=== PATIENT | female | born 1965 | race Hispanic/Latino ===

== ENCOUNTER 2018-12-26 01:08 | Emergency (ER) | payer OTHER ==
--- NOTE | 2018-12-26 01:58 | EDPHYS ---
Physician Documentation [facility] Name: Bailey Sears Age: 53 yrs Sex: Female : 1965 Arrival Date: 12/26/2018 Time: : Bed 6 Private MD: ED Physician Tj Garcia HPI: 12/26 01:49 This 53 yrs old Female presents to ER via EMS with complaints of Allergic doris Reaction. 01:49 The patient presents with chest pain, difficulty swallowing, shortness of breath, doris vomiting. Onset: The symptoms/episode began/occurred just prior to arrival. Associated signs and symptoms: Pertinent positives: abdominal pain, chest pain, light headed, nausea, shortness of breath. Possible causes: hair dye. At home the patient or guardian has treated the symptoms with nothing. Severity of symptoms: At their worst the symptoms were mild in the emergency department the symptoms are unchanged. The patient has not experienced similar symptoms in the past. 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 patient said she had spotting last October 2018 that lasted almost a week cc3 Historical: - Allergies: 01:10 hair dye; cc3 - Home Meds: 01:30 amlodipine 10 mg tab 1 tab once daily [Active]; Lantus 16 units in the morning Sub-Q cc3 [Active]; metoprolol tartrate 50 mg Oral tab once daily [Active]; glipizide 5 mg Oral tab 1 tab 2 times per day [Active]; sucralfate 1 gram oral tab once at bedtime [Active]; lisinopril 40 mg Oral tab 1 tab once daily [Active]; furosemide 40 mg Oral tab 1 tab once daily [Active]; metformin 500 mg Oral tab 1 tab 2 times per day [Active]; - PMHx: 01:10 Diabetes - NIDDM; Hypertension; cc3 - PSHx: 01:10 cardiac stent; cc3 - Immunization history:: Adult Immunizations up to date. - Social history:: Smoking status: Patient/guardian denies using tobacco, the patient reports quitting approximately 4 years ago. - Ebola Screening: : No symptoms or risks identified at this time. - Family history:: not pertinent. ROS: 01:49 Constitutional: Negative for fever, chills, and weight loss, Eyes: Negative for injury, doris pain, redness, and discharge, ENT: Negative for injury, pain, and discharge, Neck: Negative for injury, pain, and swelling, Respiratory: Negative for shortness of breath, cough, wheezing, and pleuritic chest pain, Back: Negative for injury and pain, : Negative for injury, bleeding, discharge, and swelling, MS/Extremity: Negative for injury and deformity, Skin: Negative for injury, rash, and discoloration, Neuro: Negative for headache, weakness, numbness, tingling, and seizure. 01:49 Cardiovascular: Positive for chest pain, of the chest. Exam: 01:49 Constitutional: This is a well developed, well nourished patient who is awake, alert, doris and in no acute distress. Head/Face: Normocephalic, atraumatic. Eyes: Pupils equal round and reactive to light, extra-ocular motions intact. Lids and lashes normal. Conjunctiva and sclera are non-icteric and not injected. Cornea within normal limits. Periorbital areas with no swelling, redness, or edema. ENT: Nares patent. No nasal discharge, no septal abnormalities noted. Tympanic membranes are normal and external auditory canals are clear. Oropharynx with no redness, swelling, or masses, exudates, or evidence of obstruction, uvula midline. Mucous membranes moist. Neck: Trachea midline, no thyromegaly or masses palpated, and no cervical lymphadenopathy. Supple, full range of motion without nuchal rigidity, or vertebral point tenderness. No Meningismus. Cardiovascular: Regular rate and rhythm with a normal S1 and S2. No gallops, murmurs, or rubs. Normal PMI, no JVD. No pulse deficits. Respiratory: Lungs have equal breath sounds bilaterally, clear to auscultation and percussion. No rales, rhonchi or wheezes noted. No increased work of breathing, no retractions or nasal flaring. Back: No spinal tenderness. No costovertebral tenderness. Full range of motion. Female : Normal external genitalia. Skin: Warm, dry with normal turgor. Normal color with no rashes, no lesions, and no evidence of cellulitis. MS/ Extremity: Pulses equal, no cyanosis. Neurovascular intact. Full, normal range of motion. Neuro: Awake and alert, GCS 15, oriented to person, place, time, and situation. Cranial nerves II-XII grossly intact. Motor strength 5/5 in all extremities. Sensory grossly intact. Cerebellar exam normal. Normal gait. Psych: Awake, alert, with orientation to person, place and time. Behavior, mood, and affect are within normal limits. 01:49 Chest/axilla: Inspection: normal, no acute changes, Palpation: is normal, Axilla: are normal, Breasts: are normal, no acute changes, Lymph nodes: lymphadenopathy is not appreciated. 01:49 Abdomen/GI: Inspection: distension, Bowel sounds: normal, active, Palpation: mild abdominal tenderness, in the epigastric area, right upper quadrant and left upper quadrant, Liver: no appreciated palpable abnormalities, Hernia: not appreciated. Vital Signs: 01:10 BP 171 / 97; Pulse 83; Resp 20 S; Temp 98(O); Pulse Ox 99% on 2 lpm NC; Weight 124.28 cc3 kg (R); Height 5 ft. 1 in. (154.94 cm) (R); Pain 0/10; 02:30 BP 165 / 77; Pulse 78; Resp 15 S; Temp 98(O); Pulse Ox 100% on 2 lpm NC; cc3 03:45 BP 155 / 93; Pulse 68; Resp 15 S; Temp 98.2(O); Pulse Ox 98% on R/A; cc3 04:15 BP 123 / 77; Pulse 65; Resp 16 S; Temp 98(O); Pulse Ox 97% on R/A; cc3 01:10 Body Mass Index 51.77 (124.28 kg, 154.94 cm) 3 MDM: 01:27 Patient medically screened. [facility] 01:52 Data reviewed: vital signs, nurses notes, lab test result(s), EKG, radiologic studies, doris plain films. 12/26 01:48 Order name: Basic Metabolic Panel [facility] 12/26 01:48 Order name: CBC with Diff [facility] 12/26 01:48 Order name: LFT's [facility] 12/26 01:48 Order name: Magnesium [facility] 12/26 01:48 Order name: NT PRO-BNP [facility] 12/26 01:48 Order name: PT-INR; Complete Time: 03:39 [facility] 12/26 01:48 Order name: Troponin (emerg Dept Use Only); Complete Time: 03:39 [facility] 12/26 01:48 Order name: XRAY Chest (1 view) [facility] 12/26 01:48 Order name: Lipase; Complete Time: 03:39 [facility] 12/26 01:49 Order name: Basic Metabolic Panel; Complete Time: 03:39 [facility] 12/26 01:49 Order name: CBC with Automated Diff; Complete Time: 03:39 [facility] 12/26 01:49 Order name: Liver (Hepatic) Function; Complete Time: 03:39 [facility] 12/26 01:50 Order name: Magnesium; Complete Time: 03:39 [facility] 12/26 01:50 Order name: NT PRO-BNP; Complete Time: 03:39 [facility] 12/26 01:48 Order name: EKG; Complete Time: 01:50 [facility] 12/26 01:48 Order name: Cardiac monitoring; Complete Time: 01:53 [facility] 12/26 01:48 Order name: EKG - Nurse/Tech; Complete Time: 02:29 [facility] 12/26 01:48 Order name: IV Saline Lock; Complete Time: 01:53 [facility] 12/26 01:48 Order name: Labs collected and sent; Complete Time: 02: [facility] 12/26 01:48 Order name: O2 Per Protocol; Complete Time: 01:53 [facility] 12/26 01:48 Order name: O2 Sat Monitoring; Complete Time: 01:54 [facility] Administered Medications: 02:00 Drug: Aspirin 162 mg Route: PO; cc3 02:37 Follow up: Response: No adverse reaction cc3 02:05 Drug: Pepcid 20 mg Route: IVP; Site: right antecubital; cc3 02:37 Follow up: Response: No adverse reaction cc3 02:10 Drug: SOLU-Medrol 125 mg Route: IVP; Site: right antecubital; cc3 02:33 Follow up: Response: No adverse reaction; Marked relief of symptoms cc3 02:13 Drug: Benadryl 25 mg Route: IVP; Site: right antecubital; cc3 02:34 Follow up: Response: No adverse reaction cc3 Disposition: 12/26/18 01:57 Hospitalization ordered by Zandra Patel for Observation. Preliminary diagnosis are Allergic contact dermatitis - hair dye, Chest pain, unspecified, Abdominal tenderness, Obesity, unspecified, Type 2 diabetes mellitus. - Bed requested for Telemetry/MedSurg (Inpatient). - Status is Observation. cc3 - Condition is Stable. - Problem is new. - Symptoms have improved. UTI on Admission? No Signatures: Dispatcher [employer] EDTj Flores MD MD cha Cordel, Charlene cc3 Corrections: (The following items were deleted from the chart) 02:18 01:57 Hospitalization Ordered by Zandra Patel MD for Observation. Preliminary doris diagnosis is Allergic contact dermatitis - hair dyeChest pain, unspecified; Abdominal tenderness; Obesity, unspecified. Bed requested for Telemetry/MedSurg (Inpatient). Status is Observation. Condition is Stable. Problem is new. Symptoms have improved. UTI on Admission? No. doris 04:32 02:18 12/26/2018 01:57 Hospitalization Ordered by Zandra Patel MD for Observation. cc3 Preliminary diagnosis is Allergic contact dermatitis - hair dyeChest pain, unspecified; Abdominal tenderness; Obesity, unspecified; Type 2 diabetes mellitus. Bed requested for Telemetry/MedSurg (Inpatient). Status is Observation. Condition is Stable. Problem is new. Symptoms have improved. UTI on Admission? No. doris
--- NOTE | 2018-12-26 01:58 | ER ---
Nurse's Notes [facility] Name: Bailey Sears Age: 53 yrs Sex: Female : 1965 Arrival Date: 12/26/2018 Time: Bed 6 Private MD: Diagnosis: Chest pain, unspecified;Abdominal tenderness;Obesity, unspecified;Allergic contact dermatitis-hair dye;Type 2 diabetes mellitus Presentation: 12/26 01:10 Presenting complaint: EMS states: "shortness of breath that resulted from allergy to cc3 hair dye". Transition of care: patient was not received from another setting of care. Onset: The symptoms/episode began/occurred 1 hour(s) ago. Anaphylaxis evaluation, the patient reports or I have noted the following symptoms which indicate a significant risk of anaphylaxis: shortness of breath. Onset of symptoms was December 26, 2018. Risk Assessment: Do you want to hurt yourself or someone else? Patient reports no desire to harm self or others. Initial Sepsis Screen: Does the patient meet any 2 criteria? No. Patient's initial sepsis screen is negative. Does the patient have a suspected source of infection? No. Patient's initial sepsis screen is negative. Care prior to arrival: Medication(s) given: Albuterol Neb x 1, Atrovent Neb x 1. 01:10 Method Of Arrival: EMS: [facility] cc3 01:10 Acuity: NAZANIN 3 cc3 Triage Assessment: 01:10 General: Appears in no apparent distress. comfortable, Behavior is calm, cooperative, cc3 appropriate for age. Pain: Denies pain. EENT: No signs and/or symptoms were reported regarding the EENT system. Neuro: Level of Consciousness is awake, alert, obeys commands, Oriented to person, place, time, situation, Appropriate for age. Cardiovascular: Denies chest pain, Patient's skin is warm and dry. Respiratory: Airway is patent Respiratory effort is even, unlabored, Respiratory pattern is regular, symmetrical. GI: Abdomen is round obese. : No signs and/or symptoms were reported regarding the genitourinary system. Derm: No signs and/or symptoms reported regarding the dermatologic system. Musculoskeletal: Circulation, motion, and sensation intact. Range of motion: intact in all extremities. 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 patient said she had spotting last October 2018 that lasted almost a week cc3 Historical: - Allergies: 01:10 hair dye; cc3 - Home Meds: 01:30 amlodipine 10 mg tab 1 tab once daily [Active]; Lantus 16 units in the morning Sub-Q cc3 [Active]; metoprolol tartrate 50 mg Oral tab once daily [Active]; glipizide 5 mg Oral tab 1 tab 2 times per day [Active]; sucralfate 1 gram oral tab once at bedtime [Active]; lisinopril 40 mg Oral tab 1 tab once daily [Active]; furosemide 40 mg Oral tab 1 tab once daily [Active]; metformin 500 mg Oral tab 1 tab 2 times per day [Active]; - PMHx: 01:10 Diabetes - NIDDM; Hypertension; cc3 - PSHx: 01:10 cardiac stent; cc3 - Immunization history:: Adult Immunizations up to date. - Social history:: Smoking status: Patient/guardian denies using tobacco, the patient reports quitting approximately 4 years ago. - Ebola Screening: : No symptoms or risks identified at this time. - Family history:: not pertinent. Screenin:10 Abuse screen: Denies threats or abuse. Denies injuries from another. Nutritional cc3 screening: No deficits noted. Tuberculosis screening: No symptoms or risk factors identified. Fall Risk Ambulatory Aid- None/Bed Rest/Nurse Assist (0 pts). Gait- Normal/Bed Rest/Wheelchair (0 pts) Mental Status- Oriented to own ability (0 pts). Assessment: 01:10 General: see triage assessment. cc3 01:10 Respiratory: Airway is patent Respiratory effort is even, unlabored, Respiratory cc3 pattern is regular, symmetrical, Breath sounds are clear bilaterally. 02:15 Reassessment: Patient appears in no apparent distress at this time. Patient and/or cc3 family updated on plan of care and expected duration. Pain level reassessed. Patient is alert, oriented x 3, equal unlabored respirations, skin warm/dry/pink. 03:45 Reassessment: Patient appears in no apparent distress at this time. Patient and/or cc3 family updated on plan of care and expected duration. Pain level reassessed. Patient is alert, oriented x 3, equal unlabored respirations, skin warm/dry/pink. Patient for admission, Dr. Patel at bedside. 04:15 Reassessment: Patient appears in no apparent distress at this time. Patient and/or cc3 family updated on plan of care and expected duration. Pain level reassessed. Patient is alert, oriented x 3, equal unlabored respirations, skin warm/dry/pink. Dr. Patel discharged the patient home with prescription given. Discharge instructions given to patient. IV cannula removed. Patient denies pain at this time. Patient states feeling better. Patient states symptoms have improved. 04:32 Reassessment: Patient discharged home and left ER vitally stable and ambulatory with cc3 her family. Patient denies pain at this time. Patient states feeling better. Patient states symptoms have improved. Vital Signs: 01:10 BP 171 / 97; Pulse 83; Resp 20 S; Temp 98(O); Pulse Ox 99% on 2 lpm NC; Weight 124.28 cc3 kg (R); Height 5 ft. 1 in. (154.94 cm) (R); Pain 0/10; 02:30 BP 165 / 77; Pulse 78; Resp 15 S; Temp 98(O); Pulse Ox 100% on 2 lpm NC; cc3 03:45 BP 155 / 93; Pulse 68; Resp 15 S; Temp 98.2(O); Pulse Ox 98% on R/A; cc3 04:15 BP 123 / 77; Pulse 65; Resp 16 S; Temp 98(O); Pulse Ox 97% on R/A; cc3 01:10 Body Mass Index 51.77 (124.28 kg, 154.94 cm) cc3 ED Course: 01:10 Patient has correct armband on for positive identification. Bed in low position. Call cc3 light in reach. Side rails up X2. potline monitor on. Pulse ox on. NIBP on. 01:10 Arm band placed on right wrist. Patient notified of wait time. cc3 01:22 Patient arrived in ED. aa1 01:25 Alka Ibanez is Primary Nurse. cc3 01:27 Tj Garcia MD is Attending Physician. doris 01:30 Triage completed. cc3 01:53 Zandra Patel MD is Hospitalizing Provider. doris 02:13 X-ray completed. Portable x-ray completed in exam room. Patient tolerated procedure kw well. 02:14 XRAY Chest (1 view) In Process Unspecified. EDMS 04:25 No provider procedures requiring assistance completed. IV discontinued, intact, cc3 bleeding controlled, No redness/swelling at site. Pressure dressing applied. Administered Medications: 02:00 Drug: Aspirin 162 mg Route: PO; cc3 02:37 Follow up: Response: No adverse reaction cc3 02:05 Drug: Pepcid 20 mg Route: IVP; Site: right antecubital; cc3 02:37 Follow up: Response: No adverse reaction cc3 02:10 Drug: SOLU-Medrol 125 mg Route: IVP; Site: right antecubital; cc3 02:33 Follow up: Response: No adverse reaction; Marked relief of symptoms cc3 02:13 Drug: Benadryl 25 mg Route: IVP; Site: right antecubital; cc3 02:34 Follow up: Response: No adverse reaction cc3 Outcome: 01:57 Decision to Hospitalize by Provider. doris 04:25 Discharged to home ambulatory, with family. cc3 04:25 Condition: stable 04:25 Discharge instructions given to patient, family, Instructed on discharge instructions, follow up and referral plans. medication usage, Demonstrated understanding of instructions, follow-up care, medications, Prescriptions given X 3. 04:32 Patient left the ED. cc3 Signatures: Dispatcher [employer] EDMS Clary Prather RN RN Tj Villar MD MD cha Whitley, Kimberlee kw Cordel, Charlene cc3 Corrections: (The following items were deleted from the chart) 02:33 02:30 BP 165 / 77; Pulse 78bpm; Resp 20bpm; Spontaneous; Pulse Ox 100% 2 lpm Nasal cc3 Cannula; Temp 98F Oral; cc3 03:54 03:45 BP 155 / 93; Pulse 68bpm; Resp 15bpm; Spontaneous; Pulse Ox 98% 2 lpm Nasal cc3 Cannula; Temp 98.2F Oral; cc3
[2018-12-26] MEDS ORDERED: METHYLPREDNISOLONE 125 MG INJ ONE (02:10)
[2018-12-26] MEDS ORDERED: DIPHENHYDRAMINE 50 MG/ML VIAL ONE (02:13)
[2018-12-26] MEDS ORDERED: FAMOTIDINE 20 MG/2 ML VIAL IV ONE (02:13)
[2018-12-26] MEDS ORDERED: ASPIRIN 81 MG CHEWABLE TABLET ONE (02:14)
[2018-12-26 02:32] LABS: Absolute Lymphocytes (CBC) 1.7 K/uL (0.7-4.9); Absolute Monocytes 0.6 K/uL (0.1-1.3); Basophils % 0.6 % (0-1.3); Eosinophils % 1.7 % (0-4.4); Hematocrit 38.6 % (36.0-45.0); Lymphocytes % 19.6 % (15.3-44.8); MPV 8.6 fL (7.6-11.3); Monocytes % 7.6 % (3.3-12.3); Protime INR 0.93; RBC Red Blood Cell Count 4.27 M/uL (3.86-4.86)
[2018-12-26 02:52] LABS: ALT/SGPT 21 U/L (12-78); AST/SGOT 17 U/L (15-37); Albumin 3.4 g/dL (3.4-5.0); Alkaline Phosphatase 77 U/L (45-117); BUN Blood Urea Nitrogen 19 mg/dL (7-18); Bicarbonate 26 mmol/L (21-32); Bilirubin Direct 0.1 mg/dL (0-0.2); Bilirubin Total 0.3 mg/dL (0.2-1.0); Glucose Level 206 mg/dL (74-106); Lipase 204 U/L (73-393); Magnesium 2.2 mg/dL (1.8-2.4); NT PRO-BNP 47 pg/mL (<125); Potassium 4.3 mmol/L (3.5-5.1); Protein, Total 7.7 g/dL (6.4-8.2); Sodium Level 139 mmol/L (136-145); Troponin (Emerg Dept Use Only) < 0.02 ng/mL (0.0-0.045)
--- NOTE | 2018-12-26 04:03 | P.CNS ---
Date of Consult: 12/26/18 CONSULT DICTATED #[id number]
--- NOTE | 2018-12-26 04:30 | CON ---
Reason For Consult: The patient has an allergic reaction and requesting admission. History Of Present Illness: A 53-year-old female, who was using the [employer] hair product when she sethi ddenly became short of breath. She had just put the product on her hair and she became dyspneic. Silvina valverde came into the emergency room and was given nebulizer treatments and IV steroids. She is feeling mu ch better. She does have a history of tobacco use and asthma. However, she has not used an inhaler in a while. She does have diabetes and hypertension as well. These are managed by her primary care provider, Dr. Magana. Clinically, she appears to be doing much better. She denies any shortness of b reath. There is no wheezing. My plan at this time is to go ahead and discharge her from the emergen cy room and she will take a Medrol Dosepak, inhaler treatments, and Benadryl as needed. We will give her a neb treatment prior to her leaving. It is currently around 4 o'clock. 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 She has been on 125 of Solu-Med rol and this is in her system for quite a while. She can get Benadryl [id number] as well. Review of Systems: A 10-point review of systems is otherwise unremarkable. Past Medical History: Positive for hypertension, diabetes, dyslipidemia, coronary artery disease. Past Surgical History: Cardiac stent placement. Allergies: SHE HAS NO KNOWN DRUG ALLERGIES. Family History: Noncontributory. Medications: Medication list is present with the patient and has been reviewed. Physical Examination: Vital Signs: Her vitals revealed temp of 98. Heart rate was 80s. Blood pressure was 150/70s. The patient's respiratory rate is 16, saturating 99% on room air. General: The patient is lying in bed, comfortable, no distress. Awake, alert, oriented to person, p lace, time. HEENT: Normocephalic, atraumatic. Pupils equal, reactive to light. Extraocular muscles intact. Th ere is no JVP. No bruits. Oropharynx pink, moist. No lymphadenopathy. No thyromegaly. TMs normal . Cardiovascular: Regular rate and rhythm. Systolic ejection murmur 2/6. Lungs: Clear bilaterally. Abdomen: Soft, nontender, nondistended. Bowel sounds positive. Extremities: No clubbing, no cyanosis, no edema. Neurologic: Cranial nerves 2-12 intact. Motor is 5/5. Sensation intact to light touch. Skin: No deformities. Laboratory Data: Labs have been reviewed. Assessment: 1.The patient with allergic reaction to the hair dye. 2.The patient with dyspnea. 3.History of hypertension. 4.History of coronary artery disease. 5.History of type 2 diabetes. Plan: Plan at this time is to discharge with Medrol Dosepak, albuterol inhaler, Benadryl over-the-co unter as needed. Follow up with PCP in 7 days. If her respiratory status worsens, she is to report back to the emergency room. MICHELLE Voice ID: [id number] Report ID: [id number]
[2018-12-26 05:47] VITALS: BP 155/93; TEMP 98.2; O2SAT 98
--- NOTE | 2018-12-26 08:08 | RAD REPORT ---
EXAM DESCRIPTION: RAD - Chest Single View - 12/26/2018 2:13 am CLINICAL HISTORY: Chest pain, shortness of breath COMPARISON: February 2016 TECHNIQUE: AP portable chest image was obtained 0207 hours . FINDINGS: Lungs are clear. Heart and vasculature are normal. No measurable pleural effusion and no p neumothorax. No acute bony abnormality seen. No acute aortic findings suspected. IMPRESSION: No acute cardiopulmonary process. No significant change from comparison.
--- NOTE | 2018-12-26 10:28 | EKG ---
Test Date: 2018-12-26 Test Time: 02:01:23 Healthcare Market Consultant: [id number] MEASUREMENT RESULTS: Intervals: Rate: 73 IA: 176 QRSD: 100 QT: 416 QTc: 458 [place]: P: 67 IA: 176 QRS: 69 T: 42 INTERPRETIVE STATEMENTS: Normal sinus rhythm Anterior infarct, age undetermined Abnormal ECG Compared to ECG 02/08/2016 20:19:31 No significant changes Electronically Signed On 12-26-18 10:27:44 CDT by Derrick Beasley
== END 2018-12-26 04:13 | disposition home or self-care (01) ==
LOC: ER 01:08
DX: R07.9 Chest pain, unspecified (principal); L23.4 Allergic contact dermatitis due to dyes; E11.9 Type 2 diabetes mellitus without complications; E66.9 Obesity, unspecified; R10.819 Abdominal tenderness, unspecified site; I10 Essential (primary) hypertension
CPT/HCPCS: 36415; 71045; 80048; 80076; 83690; 83735; 83880; 84484; 85025; 85610; 93005; 96374; 96375; 99284; J2930

== ENCOUNTER 2020-05-12 13:23 | Emergency (ER) | payer OTHER ==
[2020-05-12] MEDS ORDERED: HYDROCODONE/CHLORPHEN 5 ML/OSYR ONE (15:36)
[2020-05-12] MEDS ORDERED: METHYLPREDNISOLONE 125 MG INJ ONE (15:36)
[2020-05-12] MEDS ORDERED: IPRATROPIUM BROM 0.5MG/2.5ML ONE (15:36)
[2020-05-12] MEDS ORDERED: ALBUTEROL 2.5 MG/3 ML NEB SOL ONE (15:37)
--- NOTE | 2020-05-12 15:45 | RAD REPORT ---
EXAM DESCRIPTION: RAD - Chest Single View - 05/12/2020 3:36 pm CLINICAL HISTORY: COUGH COMPARISON: December 2018 TECHNIQUE: AP portable chest image was obtained 05/12/2020 3:36 pm . FINDINGS: Lung volumes are low compared to the prior study and large body habitus further limits the examination. No peripheral mass or consolidation seen. No significant failure or volume overload. He art and vasculature are normal. No measurable pleural effusion and no pneumothorax. No acute bony abn ormality seen. No acute aortic findings suspected. IMPRESSION: Exam has significant limitation but no acute cardiopulmonary process seen.
--- NOTE | 2020-05-12 17:20 | ER ---
Nurse's Notes [facility] Name: Bailey Sears Age: 54 yrs Sex: Female : 1965 Arrival Date: 05/12/2020 Time: 13:25 Bed 25 Private MD: Diego Magana E Diagnosis: Acute upper respiratory infection, unspecified Presentation: 05/12 13:30 Chief complaint: Patient states: Monday night started with sore throat. Cough. nasal ll1 drainage also. Fever 99.8 at home. Awoke with two coughing fits and SOB throughout the night. Coronavirus screen: Client denies travel out of the [place] in the last 14 days. congestion, cough unrelated to allergies, difficulty breathing, fever, nausea, sore throat, Client presents with at least one sign or symptom that may indicate coronavirus-19. Standard/surgical mask placed on the client. Ebola Screen: Patient denies travel to an Ebola-affected area in the 21 days before illness onset. Initial Sepsis Screen: Does the patient meet any 2 criteria? No. Patient's initial sepsis screen is negative. Does the patient have a suspected source of infection? Yes: Productive cough/pneumonia. Risk Assessment: Do you want to hurt yourself or someone else? Patient reports no desire to harm self or others. Onset of symptoms was May 07, 2020. 13:30 Method Of Arrival: Ambulatory ll1 13:30 Acuity: NAZANIN 3 ll1 Historical: - Allergies: 13:33 hair dye; ll1 - PMHx: 13:33 Diabetes - NIDDM; Hypertension; ll1 - PSHx: 13:33 cardiac stent; ll1 - Immunization history:: Flu vaccine is not up to date. - Social history:: Smoking status: Patient/guardian denies using tobacco, the patient reports quitting approximately 8 years ago. Screenin:45 Abuse screen: Denies threats or abuse. Denies injuries from another. Nutritional ss screening: No deficits noted. Tuberculosis screening: Never had TB. Fall Risk None identified. Assessment: 14:45 General: Appears uncomfortable, Behavior is calm, cooperative. General: Reports "low ss grade fever". Pain: Denies pain. Neuro: Level of Consciousness is awake, alert, obeys commands, Oriented to person, place, time, situation, Speech is normal, Facial symmetry appears normal, Pupils are PERRLA. Cardiovascular: Capillary refill < 3 seconds is brisk in bilateral fingers. Respiratory: Reports shortness of breath on exertion cough that is productive, since x 5-6 days Airway is patent Respiratory effort is even, unlabored, Respiratory pattern is regular, symmetrical. Respiratory: Breath sounds with wheezes in left posterior lower lobe and right posterior lower lobe. GI: Patient currently denies diarrhea, nausea, vomiting. : No signs and/or symptoms were reported regarding the genitourinary system. EENT: Reports nasal congestion nasal discharge. Derm: Skin is intact, is healthy with good turgor, Skin is pink, warm \\T\\ dry. normal. 15:45 Reassessment: Patient appears in no apparent distress at this time. Patient and/or ss family updated on plan of care and expected duration. Pain level reassessed. Patient is alert, oriented x 3, equal unlabored respirations, skin warm/dry/pink. Respiratory: Respiratory effort is even, unlabored, Respiratory pattern is regular, symmetrical. 16:45 Reassessment: Patient appears in no apparent distress at this time. No changes from ss previously documented assessment. 17:37 Reassessment: Patient appears in no apparent distress at this time. Patient and/or ss family updated on plan of care and expected duration. Pain level reassessed. Patient is alert, oriented x 3, equal unlabored respirations, skin warm/dry/pink. Patient states feeling better. Patient states symptoms have improved. Respiratory: Breath sounds are clear bilaterally. Vital Signs: 13:30 BP 172 / 81; Pulse 86; Resp 18; Temp 98.4; Pulse Ox 96% on R/A; Weight 125.19 kg; ll1 Height 5 ft. 1 in. (154.94 cm); Pain 0/10; 13:30 Body Mass Index 52.15 (125.19 kg, 154.94 cm) ll1 ED Course: 13:25 Patient arrived in ED. ag5 13:25 Diego Magana MD is Private Physician. ag5 13:32 Triage completed. ll1 13:33 Arm band placed on. ll1 14:17 Girish Ceballos NP is PHCP. pm1 14:17 Patricio Vicente MD is Attending Physician. pm1 14:20 Sanjuana Austin RN is Primary Nurse. ss 14:45 Patient has correct armband on for positive identification. Bed in low position. Call ss light in reach. 15:36 CXR XRAY In Process Unspecified. EDMS 17:37 No provider procedures requiring assistance completed. Patient did not have IV access ss during this emergency room visit. Administered Medications: 16:00 Drug: Tussionex Pennkinetic ER 5 ml Route: PO; ss 17:37 Follow up: Response: No adverse reaction; Marked relief of symptoms ss 16:07 Drug: Albuterol - atroVENT (3:1) (2.5 mg - 0.5 mg) 3 ml Route: Nebulizer; ss 17:37 Follow up: Response: No adverse reaction; Marked relief of symptoms ss 16:08 Drug: SOLU-Medrol 125 mg Route: IM; Site: right gluteus; ss 17:37 Follow up: Response: No adverse reaction ss Outcome: 17:20 Discharge ordered by MD. pm1 17:37 Discharged to home ambulatory, with family. ss 17:37 Condition: good 17:37 Discharge instructions given to patient, family, Instructed on discharge instructions, follow up and referral plans. medication usage, Demonstrated understanding of instructions, follow-up care, medications, Prescriptions given X 3. 17:38 Patient left the ED. Addendum: 05/15/2020 15:10 Addendum: COVID-19 Result: Negative result given to RN to notify pt. Notified pt of s s negative COVID 19 swab results. Pt advised that even with a negative test result they should remain in isolation until symptom free for 3 days without medication. Pt also advised to return to the ED for worsening symptoms. Signatures: Dispatcher [employer] EDNY Sanjuana Austin RN RN ss Girish Ceballos, CARD RUNNER CARD RUNNER pm1 Jennifer Baker ag5 Magi Barber, RN RN ll1 Corrections: (The following items were deleted from the chart) 05/12 13:34 13:33 Social history: Smoking status: Patient denies any tobacco usage or history of. ll1 ll1
--- NOTE | 2020-05-12 17:21 | EDPHYS ---
Physician Documentation [facility] Name: Bailey Sears Age: 54 yrs Sex: Female : 1965 Arrival Date: 05/12/2020 Time: 13:25 Bed 25 Private MD: Diego Magana E ED Physician Patricio Vicente HPI: 05/12 15:03 This 54 yrs old Female presents to ER via Ambulatory with complaints of Cold pm1 Symptoms. 15:03 The patient or guardian reports cough. Associated signs and symptoms: Pertinent pm1 positives: sore throat, wheezing, shortness of breath, Pertinent negatives: chest pain, diarrhea, fever, vomiting. Severity of symptoms: in the emergency department the symptoms are worse. Patient with onset of sore throat and then started having a cough. Patient has not been officially diagnosed with asthma but has been prescribed for Symbicort for many years by her PCP. Patient's coughing has increased and she is having shortness of breath with wheezing. Historical: - Allergies: 13:33 hair dye; ll1 - PMHx: 13:33 Diabetes - NIDDM; Hypertension; ll1 - PSHx: 13:33 cardiac stent; ll1 - Immunization history:: Flu vaccine is not up to date. - Social history:: Smoking status: Patient/guardian denies using tobacco, the patient reports quitting approximately 8 years ago. ROS: 15:03 Constitutional: Negative for fever, chills, and weight loss, Eyes: Negative for injury, pm1 pain, redness, and discharge, ENT: Negative for injury, pain, and discharge, Neck: Negative for injury, pain, and swelling, Cardiovascular: Negative for chest pain, palpitations, and edema. 15:03 Back: Negative for injury and pain, MS/Extremity: Negative for injury and deformity, Skin: Negative for injury, rash, and discoloration, Neuro: Negative for headache, weakness, numbness, tingling, and seizure. 15:03 Abdomen/GI: Negative for abdominal pain, nausea, vomiting, diarrhea, and constipation. 15:03 Respiratory: Positive for cough, shortness of breath, wheezing. Exam: 15:03 Constitutional: This is a well developed, well nourished patient who is awake, alert, pm1 and in no acute distress. Head/Face: Normocephalic, atraumatic. 15:03 Abdomen/GI: Soft, non-tender, with normal bowel sounds. No distension or tympany. No guarding or rebound. No evidence of tenderness throughout. Back: No spinal tenderness. No costovertebral tenderness. Full range of motion. Skin: Warm, dry with normal turgor. Normal color with no rashes, no lesions, and no evidence of cellulitis. MS/ Extremity: Pulses equal, no cyanosis. Neurovascular intact. Full, normal range of motion. 15:03 Cardiovascular: Exam negative for acute changes, Rate: normal, Rhythm: regular, Pulses: no pulse deficits are appreciated. 15:03 Respiratory: Exam negative for acute changes, respiratory distress, Breath sounds: wheezing: expiratory that is mild, is heard diffusely. Vital Signs: 13:30 BP 172 / 81; Pulse 86; Resp 18; Temp 98.4; Pulse Ox 96% on R/A; Weight 125.19 kg; ll1 Height 5 ft. 1 in. (154.94 cm); Pain 0/10; 13:30 Body Mass Index 52.15 (125.19 kg, 154.94 cm) ll1 MDM: 15:39 Patient medically screened. pm1 17:19 Data reviewed: vital signs. Data interpreted: Pulse oximetry: on room air is 96 %. pm1 Interpretation: normal. Counseling: I had a detailed discussion with the patient and/or guardian regarding: the historical points, exam findings, and any diagnostic results supporting the discharge/admit diagnosis, lab results, radiology results, the need for outpatient follow up, to return to the emergency department if symptoms worsen or persist or if there are any questions or concerns that arise at home. 05/12 15:03 Order name: COVID-19 pm1 05/12 15:03 Order name: Flu; Complete Time: 17:06 pm1 05/12 15:02 Order name: CXR XRAY; Complete Time: 16:33 pm1 05/12 15:03 Order name: Strep; Complete Time: 17:06 pm1 05/12 17:02 Order name: Throat Culture EDTN 05/12 15:03 Order name: Droplet/Contact Precautions; Complete Time: 15:44 pm1 05/12 15:03 Order name: Labs collected and sent; Complete Time: 15:45 pm1 05/12 15:03 Order name: O2 Per Protocol; Complete Time: 15:45 pm1 Administered Medications: 16:00 Drug: Tussionex Pennkinetic ER 5 ml Route: PO; ss 17:37 Follow up: Response: No adverse reaction; Marked relief of symptoms ss 16:07 Drug: Albuterol - atroVENT (3:1) (2.5 mg - 0.5 mg) 3 ml Route: Nebulizer; ss 17:37 Follow up: Response: No adverse reaction; Marked relief of symptoms ss 16:08 Drug: SOLU-Medrol 125 mg Route: IM; Site: right gluteus; ss 17:37 Follow up: Response: No adverse reaction ss Disposition: 18:24 Co-signature as Attending Physician, Patricio Vicente MD. rn Disposition: 05/12/20 17:20 Discharged to Home. Impression: Acute upper respiratory infection, unspecified. - Condition is Stable. - Discharge Instructions: Antibiotic Resistance, Upper Respiratory Infection, Adult, Viral Respiratory Infection. - Prescriptions for Prednisone 20 mg Oral Tablet - take 1 tablet by ORAL route once daily for 7 days; 14 tablet. Albuterol Sulfate 90 mcg/actuation - inhale 1-2 puff by INHALATION route every 4-6 hours; 1 Inhaler. Guaifenesin AC 10- 100 mg/5 mL Oral Liquid - take 10 milliliter by ORAL route every 4 hours As needed; 240 milliliter. - Medication Reconciliation Form, Thank You Letter, Antibiotic Education, Prescription Opioid Use form. - Follow up: Emergency Department; When: As needed; Reason: Worsening of condition. Follow up: Private Physician; When: 2 - 3 days; Reason: Recheck today's complaints, Continuance of care, Re-evaluation by your physician. - Problem is new. - Symptoms have improved. Signatures: Dispatcher [employer] EDMS Patricio Vicente MD MD rn Smirch, Shelby, RN RN ss Marinas, Patrick, MOUNTAIN SERVICES MANAGER MOUNTAIN SERVICES MANAGER pm1 Magi Barber RN RN ll1 Corrections: (The following items were deleted from the chart) 13:34 13:33 Social history: Smoking status: Patient denies any tobacco usage or history of. ll1 ll1 15:03 15:03 Document PUI# ordered. pm1 pm1 15:03 15:03 Notify Health Dept [phone]/ ordered. pm1 pm1 17:38 17:20 05/12/2020 17:20 Discharged to Home. Impression: Acute upper respiratory ss infection, unspecified. Condition is Stable. Forms are Medication Reconciliation Form, Thank You Letter, Antibiotic Education, Prescription Opioid Use. Follow up: Emergency Department; When: As needed; Reason: Worsening of condition. Follow up: Private Physician; When: 2 - 3 days; Reason: Recheck today's complaints, Continuance of care, Re-evaluation by your physician. Problem is new. Symptoms have improved. pm1
[2020-05-12 18:32] VITALS: BP 172/81; TEMP 98.4; O2SAT 96
== END 2020-05-12 17:38 | disposition home or self-care (01) ==
LOC: ER 13:23
DX: J06.9 Acute upper respiratory infection, unspecified (principal); Z20.828 Contact with and (suspected) exposure to other viral communicable diseases; I10 Essential (primary) hypertension; Z91.048 Other nonmedicinal substance allergy status; Z95.818 Presence of other cardiac implants and grafts
CPT/HCPCS: 87070; 87081; 87804 ×2; 71045; 96372; 99284; U0002; J2930

== ENCOUNTER 2020-07-25 07:22 | Emergency (ER) | payer OTHER ==
[2020-07-25] MEDS ORDERED: METHYLPREDNISOLONE 125 MG INJ ONE (08:10)
[2020-07-25 08:50] LABS: Protime INR 0.99
[2020-07-25 08:52] LABS: Absolute Lymphocytes (CBC) 1.2 K/uL (0.7-4.9); Basophils % 1.1 % (0-1.3); Hematocrit 39.7 % (36.0-45.0); Lymphocytes % 23.2 % (15.3-44.8); MPV 8.8 fL (7.6-11.3)
--- NOTE | 2020-07-25 09:03 | RAD REPORT ---
EXAM DESCRIPTION: RAD - Chest Single View - 07/25/2020 8:04 am CLINICAL HISTORY: Cough;Dyspnea, loss of taste and smell COMPARISON: Portable May 12 TECHNIQUE: AP portable chest image was obtained 07/25/2020 8:04 am . FINDINGS: No dense mass or consolidation. No convincing evidence for ground-glass opacification typi clau associated with a COVID-19 pneumonia. The shallow inspiration, under penetrated film technique and prominent overlying soft tissues limit assessment of early airspace disease. No failure or volume overload. Heart and vasculature are normal. No measurable pleural effusion and no pneumothorax. No acute bony abnormality seen. No acute aortic findings suspected. IMPRESSION: No acute cardiopulmonary finding no significant change from comparison. No COVID-19 specific findings. The exam limitations could potentially mask early airspace opacities a ssociated with COVID-19 pneumonia.
[2020-07-25 09:04] LABS: ALT/SGPT 66 U/L (12-78); AST/SGOT 50 U/L (15-37); Albumin 3.6 g/dL (3.4-5.0); Alkaline Phosphatase 93 U/L (45-117); BUN Blood Urea Nitrogen 20 mg/dL (7-18); Bicarbonate 25 mmol/L (21-32); Bilirubin Direct < 0.1 mg/dL (0-0.2); Bilirubin Total 0.3 mg/dL (0.2-1.0); C-Reactive Protein 8.57 mg/L (<3.00); Ferritin 110.2 ng/mL (8-388); Glucose Level 261 mg/dL (74-106); Protein, Total 8.4 g/dL (6.4-8.2); Sodium Level 137 mmol/L (136-145)
--- NOTE | 2020-07-25 09:25 | EDPHYS ---
Physician Documentation [facility] Name: Bailey Sears Age: 54 yrs Sex: Female : 1965 Arrival Date: 07/25/2020 Time: 07:26 Bed 14 Private MD: ED Physician Patricio Vicente HPI: 07/25 07:43 This 54 yrs old Female presents to ER via Unassigned with complaints of Cough, rn Fever. 07:43 The patient or guardian reports cough, described as mild, with productive sputum, rn difficulty breathing, flu symptoms, low-grade fever, myalgias. Onset: The symptoms/episode began/occurred 1 week(s) ago. Severity of symptoms: At their worst the symptoms were moderate, in the emergency department the symptoms are unchanged. Modifying factors: The symptoms are alleviated by nothing, the symptoms are aggravated by exertion. Associated signs and symptoms: Pertinent positives: fever, rhinorrhea. The patient has not experienced similar symptoms in the past. The patient has not recently seen a physician. 08:13 + myalgias and loss of taste and smell. . rn Historical: - Allergies: 07:45 No Known Drug Allergies; vg1 - Home Meds: 07:45 glipizide 5 mg Oral tab 1 tab 2 times per day [Active]; metformin 500 mg Oral tab 1 tab vg1 2 times per day [Active]; Lantus 16 units in the morning Sub-Q [Active]; metoprolol tartrate 50 mg Oral tab once daily [Active]; lisinopril 40 mg Oral tab 1 tab once daily [Active]; - PMHx: 07:45 Diabetes - NIDDM; Hypertension; Asthma; vg1 - Immunization history:: Adult Immunizations up to date, Flu vaccine is not up to date. - Social history:: Smoking status: unknown. - Family history:: not pertinent. - Hospitalizations: : No recent hospitalization is reported. ROS: 07:43 Constitutional: + fever Eyes: Negative for injury, pain, redness, and discharge, ENT: + rn nasal congestion Neck: Negative for injury, pain, and swelling, Cardiovascular: Negative for chest pain, palpitations, and edema, Respiratory: + sob and cough Abdomen/GI: Negative for abdominal pain, nausea, vomiting, diarrhea, and constipation, Back: Negative for injury and pain, MS/Extremity: Negative for injury and deformity, Skin: Negative for injury, rash, and discoloration, Neuro: Negative for headache, weakness, numbness, tingling, and seizure. Exam: 07:43 Constitutional: This is a well developed, well nourished patient who is awake, alert rn Head/Face: Normocephalic, atraumatic. ENT: No stridor Neck: Trachea midline, no masses palpated, and no cervical lymphadenopathy. Supple, full range of motion without nuchal rigidity, or vertebral point tenderness. No Meningismus. Cardiovascular: Regular rate and rhythm. No pulse deficits. Respiratory: + mild tachypnea, faint wheezing Abdomen/GI: Soft, non-tender Skin: Warm, dry MS/ Extremity: Pulses equal, no cyanosis. Neuro: Awake and alert, GCS 15 Vital Signs: 07:35 BP 137 / 72; Pulse 82; Resp 20; Temp 98.3; Pulse Ox 97% on R/A; Weight 129.73 kg; vg1 Height 5 ft. 1 in. (154.94 cm); Pain 2/10; 08:00 BP 119 / 60; Pulse 80; Resp 18; Pulse Ox 96% on R/A; vg1 08:30 BP 125 / 58; Pulse 76; Resp 18; Pulse Ox 98% on R/A; vg1 09:00 BP 110 / 61; Pulse 75; Resp 18; Pulse Ox 97% on R/A; vg1 09:28 BP 112 / 68; Pulse 72; Resp 18; Pulse Ox 97% on R/A; vg1 07:35 Body Mass Index 54.04 (129.73 kg, 154.94 cm) vg1 MDM: 07:27 Patient medically screened. rn 09:23 Differential Diagnosis: Bronchitis Influenza Upper Respiratory Infection Viral Syndrome rn Pneumonia Other COVID-19. Data reviewed: vital signs, nurses notes, lab test result(s), radiologic studies, plain films, and as a result, I will discharge patient. Counseling: I had a detailed discussion with the patient and/or guardian regarding: the historical points, exam findings, and any diagnostic results supporting the discharge/admit diagnosis, radiology results, the need for outpatient follow up, to return to the emergency department if symptoms worsen or persist or if there are any questions or concerns that arise at home. Medical screen evaluation completed. [facility] emergency medical condition absent. Medical screen evaluation completed. [facility] emergency medical condition absent. Special discussion: I discussed with the patient/guardian in detail that at this point there is no indication for admission to the hospital. It is understood, however, that if the symptoms persist or worsen the patient needs to return immediately for re-evaluation. ED course: Stable vitals, no oxygen requirement, CXR clear, likely COVID given symptoms of cough/congestion/loss of taste and smell. Will dc home with zithromax/steroids/inhaler and return precautions. . 07/25 07:42 Order name: Flu; Complete Time: 09:14 07/25 07:42 Order name: COVID-19 07/25 07:42 Order name: CBC with Diff; Complete Time: 09:14 07/25 07:42 Order name: Basic Metabolic Panel; Complete Time: 09:14 07/25 07:42 Order name: Ferritin; Complete Time: 09:14 07/25 07:42 Order name: Blood Culture Adult (2) 07/25 07:42 Order name: IV Start; Complete Time: 08:48 07/25 07:42 Order name: XRAY Chest (1 view); Complete Time: 09:14 07/25 07:42 Order name: C-Reactive Protein; Complete Time: 09:14 07/25 07:42 Order name: Lactate 07/25 07:42 Order name: LFT's; Complete Time: 09:14 07/25 07:42 Order name: Procalcitonin; Complete Time: 09:27 07/25 07:42 Order name: PT-INR; Complete Time: 09:14 07/25 07:42 Order name: Cardiac monitoring; Complete Time: 09:18 07/25 07:42 Order name: Droplet/Contact Precautions; Complete Time: 07:49 07/25 07:42 Order name: Labs collected and sent; Complete Time: 08:48 07/25 07:42 Order name: O2 Per Protocol; Complete Time: 07:49 07/25 07:42 Order name: O2 Sat Monitoring; Complete Time: 07:49 07/25 08:46 Order name: Labs - recollect needed: recollect lac- timed out; Complete Time: 09:10 eb Administered Medications: 08:30 Drug: SOLU-Medrol 125 mg Route: IVP; Site: left forearm; vg1 09:18 Follow up: Response: No adverse reaction vg1 Disposition: 07/25/20 09:25 Discharged to Home. Impression: Bronchitis, not specified as acute or chronic, Coronavirus infection, unspecified. - Condition is Stable. - Discharge Instructions: Acute Bronchitis, Adult, Asthma, Adult, COVID-19. - Prescriptions for dexamethasone 6 mg Oral tablet - take 1 tablet by ORAL route once daily for 10 days; 10 tablet. Zithromax Z- Glenn 250 mg Oral Tablet - take 1 tablet by ORAL route as directed for 5 days Day 1 - take two (2) tablets one time. Day 2, 3, 4 , 5 take one (1) tablet once daily.; 6 tablet. Albuterol Sulfate 90 mcg/actuation - inhale 1-2 puff by INHALATION route every 4-6 hours; 1 Inhaler. - Medication Reconciliation Form, Thank You Letter, Antibiotic Education, Prescription Opioid Use form. - Follow up: Private Physician; When: As needed; Reason: Recheck today's complaints, Re-evaluation by your physician. - Problem is an ongoing problem. - Symptoms have improved. Signatures: Dispatcher [employer] EDMS Patricio Vicente MD MD rn Jen Arizmendi Victoria, RN RN vg1 Corrections: (The following items were deleted from the chart) 09:38 09:25 07/25/2020 09:25 Discharged to Home. Impression: Bronchitis, not specified as vg1 acute or chronic; Coronavirus infection, unspecified. Condition is Stable. Forms are Medication Reconciliation Form, Thank You Letter, Antibiotic Education, Prescription Opioid Use. Follow up: Private Physician; When: As needed; Reason: Recheck today's complaints, Re-evaluation by your physician. Problem is an ongoing problem. Symptoms have improved. rn
--- NOTE | 2020-07-25 09:25 | ER ---
Nurse's Notes [facility] Name: Bailey Sears Age: 54 yrs Sex: Female : 1965 Arrival Date: 07/25/2020 Time: 07:26 Bed 14 Private MD: Diagnosis: Bronchitis, not specified as acute or chronic;Coronavirus infection, unspecified Presentation: 07/25 07:35 Chief complaint: Patient states: For about a week has been coughing, with SOB. States vg1 is not able to taste or smell. 07:35 Method Of Arrival: Ambulatory vg1 07:35 Coronavirus screen: Client denies travel out of the [place] in the last 14 days. Client vg1 presents with at least one sign or symptom that may indicate coronavirus-19. Standard/surgical mask placed on the client. Provider contacted for isolation considerations. Ebola Screen: Patient negative for fever greater than or equal to 101.5 degrees Fahrenheit, and additional compatible Ebola Virus Disease symptoms. Initial Sepsis Screen: Does the patient meet any 2 criteria? No. Patient's initial sepsis screen is negative. Does the patient have a suspected source of infection? No. Patient's initial sepsis screen is negative. Risk Assessment: Do you want to hurt yourself or someone else? Patient reports no desire to harm self or others. Onset of symptoms was July 18, 2020. 07:35 Acuity: NAZANIN 3 vg1 Historical: - Allergies: 07:45 No Known Drug Allergies; vg1 - Home Meds: 07:45 glipizide 5 mg Oral tab 1 tab 2 times per day [Active]; metformin 500 mg Oral tab 1 tab vg1 2 times per day [Active]; Lantus 16 units in the morning Sub-Q [Active]; metoprolol tartrate 50 mg Oral tab once daily [Active]; lisinopril 40 mg Oral tab 1 tab once daily [Active]; - PMHx: 07:45 Diabetes - NIDDM; Hypertension; Asthma; vg1 - Immunization history:: Adult Immunizations up to date, Flu vaccine is not up to date. - Social history:: Smoking status: unknown. - Family history:: not pertinent. - Hospitalizations: : No recent hospitalization is reported. Screenin:45 Abuse screen: Denies threats or abuse. Denies injuries from another. Nutritional sv screening: No deficits noted. Tuberculosis screening: No symptoms or risk factors identified. Fall Risk None identified. Assessment: 07:46 General: Appears in no apparent distress. Behavior is calm, cooperative. Pain: vg1 Complains of pain in whole body Pain currently is 2 out of 10 on a pain scale. Pain began about a week ago. Neuro: Level of Consciousness is awake, alert, obeys commands, Oriented to person, place, time, situation. Cardiovascular: Patient's skin is warm and dry. Respiratory: Airway is patent Respiratory effort is even, unlabored, Respiratory pattern is regular, symmetrical, Breath sounds are clear bilaterally. Parent/caregiver reports the patient having cough that is non-productive. GI: No signs and/or symptoms were reported involving the gastrointestinal system. : No signs and/or symptoms were reported regarding the genitourinary system. EENT: No signs and/or symptoms were reported regarding the EENT system. Derm: Skin is pink, warm \T\ dry. Musculoskeletal: Range of motion: intact in all extremities. 08:50 Reassessment: Patient appears in no apparent distress at this time. No changes from vg1 previously documented assessment. Patient and/or family updated on plan of care and expected duration. Pain level reassessed. Patient is alert, oriented x 3, equal unlabored respirations, skin warm/dry/pink. Vital Signs: 07:35 BP 137 / 72; Pulse 82; Resp 20; Temp 98.3; Pulse Ox 97% on R/A; Weight 129.73 kg; vg1 Height 5 ft. 1 in. (154.94 cm); Pain 2/10; 08:00 BP 119 / 60; Pulse 80; Resp 18; Pulse Ox 96% on R/A; vg1 08:30 BP 125 / 58; Pulse 76; Resp 18; Pulse Ox 98% on R/A; vg1 09:00 BP 110 / 61; Pulse 75; Resp 18; Pulse Ox 97% on R/A; vg1 09:28 BP 112 / 68; Pulse 72; Resp 18; Pulse Ox 97% on R/A; vg1 07:35 Body Mass Index 54.04 (129.73 kg, 154.94 cm) vg1 ED Course: 07:26 Patient arrived in ED. ds1 07:27 Patricio Vicente MD is Attending Physician. rn 07:32 Philip, Aliya, RN is Primary Nurse. vg1 07:44 Triage completed. vg1 07:45 Arm band placed on Patient placed in an exam room, on a stretcher. sv 07:45 Patient has correct armband on for positive identification. Bed in low position. Call light in reach. 07:58 Xray at bedside. vg1 08:04 XRAY Chest (1 view) In Process Unspecified. EDMS 08:15 Inserted saline lock: 22 gauge in left forearm, using aseptic technique. Blood vg1 collected. 08:20 First set of blood cultures drawn by me. vg1 08:20 Initial lab(s) drawn, by me, sent to lab. vg1 08:37 Second set of blood cultures drawn by me. vg1 09:35 No provider procedures requiring assistance completed. IV discontinued, intact, vg1 bleeding controlled, No redness/swelling at site. Pressure dressing applied. Administered Medications: 08:30 Drug: SOLU-Medrol 125 mg Route: IVP; Site: left forearm; vg1 09:18 Follow up: Response: No adverse reaction vg1 Outcome: 09:25 Discharge ordered by MD. rn 09:35 Discharged to home ambulatory, with family. vg1 09:35 Condition: stable 09:35 Discharge instructions given to patient, family, Instructed on discharge instructions, follow up and referral plans. medication usage, Demonstrated understanding of instructions, follow-up care, medications, Prescriptions given X 3. 09:38 Patient left the ED. vg1 Addendum: 07/28/2020 17:40 Addendum: COVID-19 Result: Positive result giiven to ED physician to notify pt. s v Physician: Mateo Mcdonald MD Physician was able to contact pt and pt was notified of positive COVID-19 swab result. Physician answered pt questions. Signatures: Dispatcher [employer] EDMN Anjali Damico RN Gillian Kwok ds1 Patricio Vicente MD MD rn Garcia, Victoria RN RN vg1 Corrections: (The following items were deleted from the chart) 07/25 09:13 08:30 Initial lab(s) drawn, by ms, sent to lab. vg1 vg1 09:21 07:46 Respiratory: Airway is patent Respiratory effort is even, unlabored, Respiratory vg1 pattern is regular, symmetrical, Breath sounds are clear bilaterally. vg1
[2020-07-27 22:23] VITALS: TEMP 98.3
[2020-07-27 22:27] VITALS: O2SAT 97
[2020-07-27 22:28] VITALS: BP 112/68
== END 2020-07-25 09:38 | disposition home or self-care (01) ==
LOC: ER 07:22
DX: U07.1 COVID-19 (principal); J40 Bronchitis, not specified as acute or chronic; I10 Essential (primary) hypertension; E11.9 Type 2 diabetes mellitus without complications; Z79.4 Long term (current) use of insulin
CPT/HCPCS: 87040 ×2; 85025; 80048; 36415; 85610; 80076; 83605; 82728; 84145; 86140; 87804 ×2; 71045; 96374; 99284; U0002; J2930

== ENCOUNTER 2020-10-05 00:43 | Observation (INO) | payer BC, OTHER ==
[2020-10-05 01:40] LABS: Protime INR 0.93
[2020-10-05 01:41] LABS: Absolute Lymphocytes (CBC) 2.2 K/uL (0.7-4.9); Basophils % 0.9 % (0-1.3); Hematocrit 34.7 % (36.0-45.0); Lymphocytes % 23.5 % (15.3-44.8)
[2020-10-05 02:05] LABS: ALT/SGPT 45 U/L (12-78); Albumin 3.5 g/dL (3.4-5.0); Alkaline Phosphatase 87 U/L (45-117); BUN Blood Urea Nitrogen 21 mg/dL (7-18); Bicarbonate 24 mmol/L (21-32); Bilirubin Direct < 0.1 mg/dL (0-0.2); Bilirubin Total 0.3 mg/dL (0.2-1.0); Glucose Level 270 mg/dL (74-106); NT PRO-BNP 158 pg/mL (<125); Protein, Total 7.7 g/dL (6.4-8.2); Sodium Level 141 mmol/L (136-145); Troponin (Emerg Dept Use Only) < 0.02 ng/mL (0.0-0.045)
[2020-10-05 02:06] LABS: AST/SGOT 33 U/L (15-37); Potassium 4.1 mmol/L (3.5-5.1)
[2020-10-05] MEDS ORDERED: ASPIRIN 81 MG CHEWABLE TABLET ONE (02:16)
[2020-10-05 03:26] LABS: Urine Blood NEGATIVE (NEG); Urine Glucose 2+ (NEG); Urine Protein NEGATIVE (NEG); Urine pH 6.5 (5.0-7.0)
--- NOTE | 2020-10-05 05:11 | ER ---
Nurse's Notes [facility] Name: Bailey Sears Age: 55 yrs Sex: Female : 1965 Arrival Date: 10/05/2020 Time: 00:46 Bed 6 Private MD: Diagnosis: Chest pain, unspecified;Dyspnea Presentation: 10/05 00:59 Chief complaint: Patient states: i started having left sided chest pain radiating to mg2 the left arm 30 min ago. my both legs are also swollen. Coronavirus screen: Client denies travel out of the [place] in the last 14 days. At this time, the client does not indicate any symptoms associated with coronavirus-19. Ebola Screen: No symptoms or risks identified at this time. Initial Sepsis Screen: Does the patient meet any 2 criteria? No. Patient's initial sepsis screen is negative. Does the patient have a suspected source of infection? No. Patient's initial sepsis screen is negative. Risk Assessment: Do you want to hurt yourself or someone else? Patient reports no desire to harm self or others. Onset of symptoms was October 05, 2020. 00:59 Method Of Arrival: Wheelchair mg2 00:59 Acuity: NAZANIN 3 mg2 Triage Assessment: 01:02 General: Appears in no apparent distress. comfortable, Behavior is calm, cooperative. mg2 Pain: Complains of pain in chest Pain radiates to left arm. EENT: No signs and/or symptoms were reported regarding the EENT system. Neuro: Level of Consciousness is awake, alert, obeys commands, Oriented to person, place, time, situation. Cardiovascular: Capillary refill < 3 seconds Patient's skin is warm and dry. Respiratory: Airway is patent Respiratory effort is even, unlabored, Respiratory pattern is regular, symmetrical. GI: No signs and/or symptoms were reported involving the gastrointestinal system. : No signs and/or symptoms were reported regarding the genitourinary system. Derm: Skin is intact, is healthy with good turgor, Skin is pink, warm \T\ dry. normal. Musculoskeletal: Circulation, motion, and sensation intact. Capillary refill < 3 seconds. Historical: - Allergies: 01:02 hair dye; mg2 - PMHx: 01:02 Asthma; Diabetes - NIDDM; Hypertension; mg2 - PSHx: 01:02 Heart stents; mg2 - Immunization history:: Flu vaccine status is unknown. - Social history:: Smoking status: Patient denies any tobacco usage or history of. Patient/guardian denies using alcohol, street drugs, IV drugs. Screenin:03 Abuse screen: Denies threats or abuse. Denies injuries from another. Nutritional mg2 screening: No deficits noted. Tuberculosis screening: No symptoms or risk factors identified. Fall Risk IV access (20 points). Assessment: 01:03 Reassessment: see triage note. mg2 01:28 Pain: Pain began gradually. mg2 03:04 Reassessment: Patient appears in no apparent distress at this time. Patient and/or mg2 family updated on plan of care and expected duration. Pain level reassessed. Patient is alert, oriented x 3, equal unlabored respirations, skin warm/dry/pink. 05:25 Reassessment: Patient appears in no apparent distress at this time. Patient and/or mg2 family updated on plan of care and expected duration. Pain level reassessed. Patient is alert, oriented x 3, equal unlabored respirations, skin warm/dry/pink. patient was advised for admission and she agreed. Vital Signs: 00:59 BP 113 / 52; Pulse 80; Resp 18; Temp 98.2; Pulse Ox 96% on R/A; Weight 125.19 kg; mg2 Height 5 ft. 1 in. (154.94 cm); 03:04 BP 134 / 82; Pulse 79; Resp 18; Pulse Ox 96% on R/A; mg2 04:55 Pulse 92; Resp 18; Pulse Ox 93% on R/A; mg2 00:59 Body Mass Index 52.15 (125.19 kg, 154.94 cm) mg2 04:55 while patient is ambulating mg2 ED Course: 00:46 Patient arrived in ED. cl3 00:51 Live Anderson, BEE is Primary Nurse. mg2 01:00 Quintin Mora MD is Attending Physician. mh7 01:01 Triage completed. mg2 01:02 Arm band placed on. mg2 01:03 Patient has correct armband on for positive identification. electronic device monitor on. Pulse mg2 ox on. NIBP on. Door closed. Warm blanket given. 01:03 No provider procedures requiring assistance completed. EKG done, by ED staff, reviewed mg2 by Quintin Mora MD. 01:03 Patient maintains SpO2 saturation greater than 95% on room air. mg2 01:41 XRAY Chest (1 view) In Process Unspecified. EDMS 04:03 CT Chest For PE Angio In Process Unspecified. EDMS 05:00 Inserted saline lock: 20 gauge in right forearm, using aseptic technique. Blood mg2 collected. 05:09 Jayden Nichols MD is Hospitalizing Provider. [facility] 05:21 COVID swab sent to lab. Patient admitted, IV remains in place. mg2 Administered Medications: 02:00 Drug: Aspirin Chewable Tablet 324 mg Route: PO; mg2 03:05 Follow up: Response: No adverse reaction mg2 05:19 Drug: Rocephin - (cefTRIAXone) 1 grams Route: IVPB; Infused Over: 30 mins; Site: right mg2 forearm; 05:40 Follow up: Response: No adverse reaction; IV Status: Completed infusion mg2 05:19 Drug: Zithromax 500 mg Route: IVPB; Infused Over: 1 hrs; Site: right forearm; mg2 06:42 Follow up: Response: No adverse reaction; IV Status: Completed infusion; IV Intake: mg2 250ml 06:41 Drug: Lasix 40 mg Route: IVP; Site: right forearm; mg2 09:52 Follow up: Response: No adverse reaction bp Intake: 06:42 IV: 250ml; Total: 250ml. mg2 Outcome: 05:10 Decision to Hospitalize by Provider. 7 10:26 Patient left the ED. bp Signatures: Dispatcher [employer] EDJunior Scott RN RN bp Live Anderson RN RN mg2 David Barber cl3 Quintin Mora MD MD 7 Corrections: (The following items were deleted from the chart) 01:55 00:59 125.19 kg; Height 5 ft. 1 in.; BMI: 52.1; mg2 mg2 05:25 05:22 BP 121 / 66; Pulse 72bpm; Resp 18bpm; Pulse Ox 95% RA; mg2 mg2
--- NOTE | 2020-10-05 05:11 | EDPHYS ---
Physician Documentation [facility] Name: Bailey Sears Age: 55 yrs Sex: Female : 1965 Arrival Date: 10/05/2020 Time: 00:46 Bed 6 Private MD: ED Physician Quintin Mora HPI: 10/05 01:39 This 55 yrs old Female presents to ER via Wheelchair with complaints of Leg mh7 Swelling, Chest Pain. 01:39 The patient or guardian reports chest pain that is located primarily in the anterior mh7 chest wall, left. 01:39 Onset: today. The pain radiates to the left arm. mh7 01:39 Associated signs and symptoms: Pertinent positives: lower extremity swelling, nausea, mh7 shortness of breath, Pertinent negatives: abdominal pain, cough, diaphoresis, dizziness, headache, lower extremity pain, lightheadedness, near syncope, palpitations, recent travel, syncope, vomiting. The chest pain is described as a pressure. Duration: The patient or guardian reports multiple episodes, that are intermittent, that wax and wane, with no pattern. Modifying factors: The symptoms are alleviated by nothing. the symptoms are aggravated by nothing. Severity of pain: At its worst the pain was moderate today, in the emergency department the pain has improved moderately. Historical: - Allergies: 01:02 hair dye; mg2 - PMHx: 01:02 Asthma; Diabetes - NIDDM; Hypertension; mg2 - PSHx: 01:02 Heart stents; mg2 - Immunization history:: Flu vaccine status is unknown. - Social history:: Smoking status: Patient denies any tobacco usage or history of. Patient/guardian denies using alcohol, street drugs, IV drugs. ROS: 01:39 Constitutional: Negative for fever, chills, and weight loss, Eyes: Negative for injury, mh7 pain, redness, and discharge, ENT: Negative for injury, pain, and discharge, Neck: Negative for injury, pain, and swelling, Back: Negative for injury and pain, : Negative for injury, bleeding, discharge, and swelling, Skin: Negative for injury, rash, and discoloration, Neuro: Negative for headache, weakness, numbness, tingling, and seizure, Psych: Negative for depression, anxiety, suicide ideation, homicidal ideation, and hallucinations, Allergy/Immunology: Negative for hives, rash, and allergies, Endocrine: Negative for neck swelling, polydipsia, polyuria, polyphagia, and marked weight changes, Hematologic/Lymphatic: Negative for swollen nodes, abnormal bleeding, and unusual bruising. Exam: 01:39 Constitutional: This is a well developed, well nourished patient who is awake, alert, mh7 and in no acute distress. Head/Face: Normocephalic, atraumatic. Eyes: Pupils equal round and reactive to light, extra-ocular motions intact. Lids and lashes normal. Conjunctiva and sclera are non-icteric and not injected. Cornea within normal limits. Periorbital areas with no swelling, redness, or edema. Neck: Trachea midline, no thyromegaly or masses palpated, and no cervical lymphadenopathy. Supple, full range of motion without nuchal rigidity, or vertebral point tenderness. No Meningismus. Chest/axilla: Normal chest wall appearance and motion. Nontender with no deformity. No lesions are appreciated. Cardiovascular: Regular rate and rhythm with a normal S1 and S2. No gallops, murmurs, or rubs. Normal PMI, no JVD. No pulse deficits. Respiratory: Lungs have equal breath sounds bilaterally, clear to auscultation and percussion. No rales, rhonchi or wheezes noted. No increased work of breathing, no retractions or nasal flaring. Abdomen/GI: Soft, non-tender, with normal bowel sounds. No distension or tympany. No guarding or rebound. No evidence of tenderness throughout. Back: No spinal tenderness. No costovertebral tenderness. Full range of motion. Skin: Warm, dry with normal turgor. Normal color with no rashes, no lesions, and no evidence of cellulitis. MS/ Extremity: Pulses equal, no cyanosis. Neurovascular intact. Full, normal range of motion. Neuro: Awake and alert, GCS 15, oriented to person, place, time, and situation. Cranial nerves II-XII grossly intact. Motor strength 5/5 in all extremities. Sensory grossly intact. Cerebellar exam normal. Normal gait. Psych: Awake, alert, with orientation to person, place and time. Behavior, mood, and affect are within normal limits. Vital Signs: 00:59 BP 113 / 52; Pulse 80; Resp 18; Temp 98.2; Pulse Ox 96% on R/A; Weight 125.19 kg; mg2 Height 5 ft. 1 in. (154.94 cm); 03:04 BP 134 / 82; Pulse 79; Resp 18; Pulse Ox 96% on R/A; mg2 04:55 Pulse 92; Resp 18; Pulse Ox 93% on R/A; mg2 00:59 Body Mass Index 52.15 (125.19 kg, 154.94 cm) mg2 04:55 while patient is ambulating mg2 MDM: 05:05 Differential diagnosis: abnormal EKG, acute myocardial infarction, acute pericarditis, mh7 anxiety, coronary artery disease chest wall pain, congestive heart failure costochondritis, myocarditis, pericarditis, pneumonia, pneumothorax, pulmonary embolus. HEART Score: History: Moderately Suspicious (1), ECG: Non specific repolarization disturbance / LBTB / PM (1), Age: > 45 and < 65 years (1), Risk Factors: > or = 3 Risk factors for atherosclerotic disease (2), [Hypercholesterolemia] [Hypertension] [DM] [Obesity] Troponin: < or = 1 x Normal Limit (0), Total Score = 5. The patient was given aspirin in the Emergency Department. Data reviewed: vital signs, nurses notes, old medical records, lab test result(s), cardiac enzymes, CBC, electrolytes, urinalysis, EKG, radiologic studies, CT scan, plain films. Data interpreted: Pulse oximetry: on room air is 96 %. Interpretation: normal. Counseling: I had a detailed discussion with the patient and/or guardian regarding: the historical points, exam findings, and any diagnostic results supporting the discharge/admit diagnosis, lab results, radiology results, the need for further work-up and treatment in the hospital. Response to treatment: the patient's symptoms have mildly improved after treatment. 05:10 Patient medically screened. mh7 10/05 00:59 Order name: Basic Metabolic Panel mg2 10/05 00:59 Order name: CBC with Diff; Complete Time: 01:51 mg2 10/05 00:59 Order name: LFT's; Complete Time: 02:17 mg2 10/05 00:59 Order name: Magnesium; Complete Time: 02:17 mg2 10/05 00:59 Order name: NT PRO-BNP; Complete Time: 02:17 mg2 10/05 00:59 Order name: PT-INR; Complete Time: 03:15 mg2 10/05 00:59 Order name: Troponin (emerg Dept Use Only); Complete Time: 02:17 [facility] [place] 10/05 01:00 Order name: Basic Metabolic Panel; Complete Time: 02:17 [facility] 10/05 02:45 Order name: D-Dimer; Complete Time: 03:15 [facility] 10/05 03:04 Order name: Urine Dipstick--Ancillary (enter results); Complete Time: 04:47 nm 10/05 04:27 Order name: COVID-19 : Document "Date of Symptom Onset" if Symptomatic. [facility] [place] 10/05 04:48 Order name: Blood Culture Adult (2) [facility] 10/05 00:59 Order name: XRAY Chest (1 view) [facility] [place] 10/05 00:59 Order name: EKG; Complete Time: 01:01 [facility] [place] 10/05 03:15 Order name: CT Chest For PE Angio [facility] 10/05 04:48 Order name: Lactate [facility] 10/05 04:48 Order name: Procalcitonin [facility] 10/05 05:05 Order name: Troponin (emerg Dept Use Only) [facility] [place] 10/05 05:44 Order name: SARS-COV-2 RT PCR [facility] 10/05 06:07 Order name: Respiratory Therapy Consult [facility] 10/05 06:07 Order name: Social Service Consult [facility] 10/05 06:17 Order name: CONS Physician Consult [facility] 10/05 06:17 Order name: Troponin I [facility] 10/05 08:08 Order name: Glucose, Ancillary Testing [facility] 10/05 00:59 Order name: Cardiac monitoring; Complete Time: 01:12 [facility] [place] 10/05 00:59 Order name: EKG - Nurse/Tech; Complete Time: 01:12 [facility] [place] 10/05 00:59 Order name: IV Saline Lock; Complete Time: 01:12 mg2 10/05 00:59 Order name: Labs collected and sent; Complete Time: 01:12 mg2 10/05 00:59 Order name: O2 Per Protocol; Complete Time: 01:12 mg2 10/05 00:59 Order name: O2 Sat Monitoring; Complete Time: 01:12 mg2 10/05 02:19 Order name: Urine Dipstick-Ancillary (obtain specimen); Complete Time: 02:56 [facility] Administered Medications: 02:00 Drug: Aspirin Chewable Tablet 324 mg Route: PO; mg2 03:05 Follow up: Response: No adverse reaction mg2 05:19 Drug: Rocephin - (cefTRIAXone) 1 grams Route: IVPB; Infused Over: 30 mins; Site: right mg2 forearm; 05:40 Follow up: Response: No adverse reaction; IV Status: Completed infusion mg2 05:19 Drug: Zithromax 500 mg Route: IVPB; Infused Over: 1 hrs; Site: right forearm; mg2 06:42 Follow up: Response: No adverse reaction; IV Status: Completed infusion; IV Intake: mg2 250ml 06:41 Drug: Lasix 40 mg Route: IVP; Site: right forearm; mg2 09:52 Follow up: Response: No adverse reaction bp Disposition: 10/05/20 05:10 Hospitalization ordered by Jayden Nichols for Observation. Preliminary diagnosis are Chest pain, unspecified, Dyspnea. - Bed requested for Telemetry/MedSurg (observation). - Status is Observation. bp - Condition is Stable. - Problem is new. - Symptoms have improved. Signatures: Dispatcher [employer] EDME Linda Magaña RN RN mw Michelle Beck RN RN bb Garret Corrigan em1 Junior Brooks RN RN bp Live Anderson RN RN mg2 Quintin Mora MD MD mh7 Corrections: (The following items were deleted from the chart) 02:44 02:18 D-DIMER+[id number].LAB.BRZ ordered. EDME EDMS 04:57 04:27 CORONAVIRUS ordered. EDME EDMS 06:10 05:10 Hospitalization Ordered by Jayden Nichols MD for Observation. Preliminary mw diagnosis is Chest pain, unspecified; Dyspnea. Bed requested for Telemetry/MedSurg (observation). Status is Observation. Condition is Stable. Problem is new. Symptoms have improved. mh7 06:19 06:10 10/05/2020 05:10 Hospitalization Ordered by Jayden Nichols MD for Observation. bb Preliminary diagnosis is Chest pain, unspecified; Dyspnea. Bed requested for Telemetry/MedSurg (observation). Status is Observation. Condition is Stable. Problem is new. Symptoms have improved. mw 06:19 06:19 10/05/2020 05:10 Hospitalization Ordered by Jayden Nichols MD for Observation. mw Preliminary diagnosis is Chest pain, unspecified; Dyspnea. Bed requested for [facility] ER HOLD. Status is Observation. Condition is Stable. Problem is new. Symptoms have improved. bb 06:19 06:19 10/05/2020 05:10 Hospitalization Ordered by Jayden Nichols MD for Observation. bb Preliminary diagnosis is Chest pain, unspecified; Dyspnea. Bed requested for Telemetry/MedSurg (observation). Status is Observation. Condition is Stable. Problem is new. Symptoms have improved. mw 09:20 06:19 10/05/2020 05:10 Hospitalization Ordered by Jayden Nichols MD for Observation. em1 Preliminary diagnosis is Chest pain, unspecified; Dyspnea. Bed requested for [facility] ER HOLD. Status is Observation. Condition is Stable. Problem is new. Symptoms have improved. bb 10:26 09:20 10/05/2020 05:10 Hospitalization Ordered by Jayden Nichols MD for Observation. bp Preliminary diagnosis is Chest pain, unspecified; Dyspnea. Bed requested for Telemetry/MedSurg (observation). Status is Observation. Condition is Stable. Problem is new. Symptoms have improved. em1
[2020-10-05] MEDS ORDERED: CEFTRIAXONE/SWI 1gm 1 GM/10 ML SYR ONE ×2 (05:29→08:24)
[2020-10-05] MEDS ORDERED: AZITHROMYCIN 500 MG INJ IVPB ONE (05:29)
[2020-10-05] MEDS ORDERED: NA CHLORIDE 0.9% 250 ML ONE (05:29)
--- NOTE | 2020-10-05 06:03 | P.HP ---
Certification for Inpatient With expected LOS: >2 Midnights Patient will require the following post-hospital care: None Practitioner: I am a practitioner with admitting privileges, knowledge of patient current condition, hospital course, and medical plan of care. Services: Services provided to patient in accordance with Admission requirements found in Title 42 Section 412.3 of the Code of Federal Regulations Patient History Date of Service: 10/05/20 Reason for admission: leg swelling and SOB History of Present Illness: 55 yr old female with HTN , DM , CAD s/p PCI x1 10 years ago -admitted for increasing exertional dyspnea and leg swelling -Denies any recent travels , -admit to some cough , no sputum , no fever -+ chest pain , left sided , radiate to shoulder and left arm - no recent similar episode , no cough contact -workup with unremarkable CXR , CT angio neg for PE but ground glass opacities in left opacities Allergies No Known Drug Allergies Allergy (Unverified 08/14/14 02:16) Unknown No Known Allergie Allergy (Uncoded 02/13/16 22:31) Unknown Home Medications: Aspirin [Lo-Dose Aspirin EC] 81 mg PO DAILY #0 tablet.dr 09/07/11 Metoprolol Tartrate 50 mg PO BID #0 tablet 09/07/11 Nitroglycerin [Nitrostat] 0.4 mg SL PRN #0 tab.subl 09/07/11 Simvastatin [Zocor] 40 mg FT DAILY #0 tablet 09/07/11 Albuterol Inhaler [Ventolin Inhaler*] 2 puff IH Q6H PRN #1 hfa.aer.ad 12/26/18 Diphenhydramine [Benadryl Tab/Cap] 25 mg PO Q6HP PRN #20 tab 12/26/18 Methylprednisolone [Medrol dosepack] 4 mg PO DIRECTED #1 simran 12/26/18 - Past Medical/Surgical History Has patient received pneumonia vaccine in the past: No -: HTN -: dm -: cad Past Surgical History: Reviewed- Non-Contributory - Social History Smoking Status: Former smoker Smoking therapy provided: No Patient receptive to therapy: No Alcohol use: No CD- Drugs: No Caffeine use: No Place of Residence: Home Review of Systems Eyes: Pain, Unremarkable ENT: Ear Pain, Ear Discharge Respiratory: Cough, Dry Cardiovascular: Chest Pain Gastrointestinal: Unremarkable Genitourinary: Unremarkable Musculoskeletal: Unremarkable Integumentary: Unremarkable Neurological: Unremarkable Physical Examination - Physical Exam General: Alert, Oriented x3, Obese HEENT: Atraumatic, Normocephalic, PERRLA Neck: Supple, 2+ carotid pulse no bruit, JVD not distended Respiratory: Clear to auscultation bilaterally, Normal air movement Cardiovascular: Regular rate/rhythm, Normal S1 S2, Edema Capillary refill: <2 Seconds Gastrointestinal: Normal bowel sounds, Soft and benign, Non-distended, No tenderness Musculoskeletal: No clubbing, Swelling Neurological: Normal gait, Normal speech, Normal strength at 5/5 x4 extr - Studies Laboratory Data (last 24 hrs) 10/05/20 01:10: PT 10.7, INR 0.93 10/05/20 01:10: WBC 9.60, Hgb 11.9 L, Hct 34.7 L, Plt Count 152 10/05/20 01:10: Sodium 141, Potassium 4.1, BUN 21 H, Creatinine 1.14, Glucose 270 H, Magnesium 2.0, Total Bilirubin 0.3, AST 33, ALT 45, Alkaline Phosphatase 87 Assessment and Plan - Problems (Diagnosis) (1) Chest pain Current Visit: Yes Status: Acute (2) Pneumonia due to COVID-19 virus Current Visit: Yes Status: Acute (3) HTN (hypertension) Current Visit: Yes Status: Acute - Advance Directives Does patient have a Living Will: No Does patient have a Durable POA for Healthcare: No Physician Review: Patient Assessed, Agree with Above Assessment and Plan Physician Review Additional Text: # Chest pain -may be due to covid pna -serial sets of CE -may need echo # Dyspnea - likely due to covid pna -dose decadron/ivermectin/zinc -dose 02 as needed -wean as tolerated -Given LE edema , may need echo and outp cardiac eval # HTN -stable # DM- insulin sliding scale # DVT prop- sc heparin # Advance directive - full code Time Spent Managing Pts Care (In Minutes): 65
[2020-10-05] MEDS ORDERED: MORPHINE 2 MG/ML SYR IV PRN (06:11)
[2020-10-05] MEDS ORDERED: ONDANSETRON 4 MG/2 ML VIAL IV PRN (06:11)
[2020-10-05] MEDS ORDERED: FUROSEMIDE 40 MG/4 ML VIAL IV ONE (06:13)
[2020-10-05] MEDS ORDERED: LORAZEPAM 0.5 MG TABLET PO PRN (06:13)
[2020-10-05] MEDS ORDERED: Oxycodone HCl/Acetaminophen 1 TAB TAB PO PRN (06:13)
[2020-10-05] MEDS ORDERED: FUROSEMIDE 40 MG/4 ML VIAL ONE ×2 (06:57→08:23)
[2020-10-05] MEDS: INSULIN -REGULAR HUMAN 50 UNIT/0.5 ML ML SQ SCH ×2 (07:30→12:24)
[2020-10-05] MEDS ORDERED: ZINC SULFATE 220 MG CAP ONE (08:22)
[2020-10-05] MEDS ORDERED: ASPIRIN EC 81 MG TAB PO ONE (08:22)
[2020-10-05] MEDS ORDERED: predniSONE 20 MG TAB ONE (08:23)
[2020-10-05] MEDS ORDERED: INSULIN -REGULAR HUMAN 50 UNIT/0.5 ML ML ONE (08:24)
[2020-10-05] MEDS ORDERED: NA CHLORIDE 0.9% 100 ML ONE (08:24)
[2020-10-05] MEDS ORDERED: ENOXAPARIN 40 MG/0.4 ML SQ ONE (08:24)
[2020-10-05 08:33] VITALS: BMI 52.1
[2020-10-05] MEDS ORDERED: ZINC SULFATE 220 MG CAP PO SCH (09:00)
[2020-10-05] MEDS ORDERED: dexAMETHasone 4 MG TAB PO SCH (09:00)
[2020-10-05] MEDS ORDERED: GUAIFENESIN 600 MG SA TAB PO SCH (09:00)
[2020-10-05] MEDS ORDERED: predniSONE 20 MG TAB PO SCH (09:00)
[2020-10-05] MEDS ORDERED: CEFTRIAXONE/SWI 1gm 1 GM/10 ML SYR IV SCH (09:00)
[2020-10-05] MEDS ORDERED: ENOXAPARIN 40 MG/0.4 ML SQ SCH (09:00)
[2020-10-05] MEDS ORDERED: CEFTRIAXONE 1 GM/NS 50 ML 1 GM/50 ML BAG IV SCH (09:00)
[2020-10-05] MEDS ORDERED: IVERMECTIN 3 MG TABLET PO SCH (09:00)
[2020-10-05] MEDS ORDERED: ASPIRIN EC 81 MG TAB PO SCH (09:00)
[2020-10-05 10:47] VITALS: O2SAT 93
--- NOTE | 2020-10-05 11:18 | RAD REPORT ---
EXAM DESCRIPTION: RAD - Chest Single View - 10/05/2020 1:41 am COMPARISON: Chest radiograph July 25, 2020 report only CLINICAL HISTORY: [facility] MAIN CHEST PAIN FINDINGS: A single AP view of the chest demonstrates a mildly enlarged cardiomediastinal silhouette. No pneumothorax or definite pleural effusion. Mild bilateral perihilar opacities. Osseous structures are intact. IMPRESSION: Mild bilateral perihilar opacities could represent mild pulmonary edema, tissue superimp osition, or early infection. Electronically signed by: Ric Pizarro MD 10/05/2020 1:48 AM [facility] Due to temporary technical issues with the PACS/Fluency reporting system, reports are being signed by the in house radiologist without review as a courtesy to ensure prompt reporting. The interpreting r adiologist is fully responsible for the content of the report.
--- NOTE | 2020-10-05 11:18 | RAD REPORT ---
EXAM DESCRIPTION: CT - Chest For Pe Angio - 10/05/2020 5:46 am CLINICAL HISTORY: The patient is 55 years old and is Female; Chest pain;SOB TECHNIQUE: Axial computed tomographic angiography images of the chest with intravenous contrast. S agittal and coronal reformatted images were created and reviewed. This CT exam was performed using one or more of the following dose reduction techniques: automated exposure control, adjustment of t he mA and/or kV according to patient size, and/or use of iterative reconstruction technique. MIP reconstructed images were created and reviewed. COMPARISON: No relevant prior studies available. FINDINGS: ARTIFACTS: The exam is suboptimal secondary to motion artifact. PULMONARY ARTERIES: The main pulmonary arteries and segmental branches opacify normally and are without filling defect. AORTA: No acute findings. No thoracic aortic aneurysm. LUNGS: Subtle scattered areas of groundglass opacity are noted specifically within the left uppe r and left upper lobes. The tracheobronchial tree is widely patent. PLEURAL SPACE: Unremarkable. No significant effusion. No pneumothorax. HEART: Unremarkable. No cardiomegaly. No significant pericardial effusion. No evidence of RV dysfunction. BONES/JOINTS: Multilevel degenerative change of the spine is present. No acute fracture. No dislocation. SOFT TISSUES: Unremarkable. LYMPH NODES: Unremarkable. No enlarged lymph nodes. LIVER: The liver is mildly fatty. IMPRESSION: 1. The main pulmonary arteries and segmental branches opacify normally and are without filling defect. The remainder of the pulmonary vessels are not as well evaluated secondary to neo on artifact. 2. Subtle scattered areas of groundglass opacity as described. Groundglass opacification is a nonsp ecific finding and not necessarily indicative of significant pathology. However, in the appropriate c linical setting, pulmonary edema, pneumonia, or atypical infectious process to include viral pneumoni tis should be considered. Electronically signed by: Bette Walden MD 10/05/2020 4:16 AM EDITOR Due to temporary technical issues with the PACS/Fluency reporting system, reports are being signed by the in house radiologist without review as a courtesy to ensure prompt reporting. The interpreting r adiologist is fully responsible for the content of the report.
--- NOTE | 2020-10-05 13:25 | P.DS ---
Admission Date: 10/05/20 Discharge Date: 10/05/20 Primary Care Provider: Dr. Magana Disposition: ROUTINE DISCHARGE Discharge Condition: GOOD Reason for Admission: leg swelling and SOB Consultations: Cardiology-Dr. Chaves Procedures: COVID: Positive CT Scan: Medical problem List: Chest pain and SOB secondary to CHF, likely diastolic COVID 19 pneumonia HTN Hyperlipidemia Brief History of Present Illness: 55-year-old female presented with hypertension, diabetes, CAD with antonette or stent. Patient presented with chest pain, increasing shortness of breath and edema to the lower extremity. Patient was positive for COViD but symptoms likely related to underlying congestive heart failure. Patient admitted for treatment. Hospital Course: Patient presented with chest pain, shortness of breath and edema to the lower extremity. Patient admitted for further evaluation and treatment. Patient seen and evaluated by Cardiology. No intervention was required. Patient had echocardiogram to evaluate further. Suspect underlying CHF. Patient given IV L asix with improvement. At discharge patient will follow up with cardiology in 1 week to follow up this hospitalization. At discharge patient continue with a 1500 cc per day fluid restriction and low-salt diet. At discharge patient will continue with Lasix 40 mg daily. Recommend to monitor her weight daily. If her weight increases by more than 5 lb she is to contact her PCP or cardiology for f urther recommendation. Education on CHF will be provided. Patient was also found to be positive for COVID. Symptoms of shortness of breath likely related to above. At discharge the patient will continue with prednisone 10 mg 1 pill twice daily for 7 days then 1 pill once daily for 7 days. Patient will also continue with vitamin supplementation including vitamin-C 500 mg 3 times a day, vitamin-D 2000 units daily, thiamine 100 mg 1 pill twice daily, melatonin 5 mg at bedtime and zinc 2 and 20 mg daily. Patient may continue with Pro air 2 puffs 3 times a day as needed for shortness of breat h. Patient will continue with oxygen to maintain sats above 93%. Oxygen can be weaned off. Recommend follow up with PCP to further monitor and address. Patient may also follow up with pulmonology as an outpatient to further assess. Education on COVID 19 will be provided. Patient will continue with incentive spirometer at home. Patient will continue with proning and ambulation as well. Patient with hypertension. At discharge she will continue with metoprolol 50 mg 1 pill twice daily. Recommend to maintain blood pressure less than 130/80. Further adjustment can be done by her PCP. Patient will also continue with aspirin 81 mg daily. Patient with hyperlipidemia. At discharge she will continue with Zocor 40 mg daily. Vital Signs/Physical Exam: Temp Pulse Resp BP Pulse Ox 97.3 F 78 19 138/80 95 10/05/20 12:00 10/05/20 12:00 10/05/20 12:00 10/05/20 12:00 10/05/20 12:00 General: Alert, In no apparent distress, Oriented x3, Cooperative HEENT: Atraumatic Neck: Supple Respiratory: Crackles/rales (Crackles to the bases) Cardiovascular: Normal pulses, Regular rate/rhythm Gastrointestinal: Normal bowel sounds, No masses, No rebound, No guarding Integumentary: Other (1+ pitting edema to the lower extremities) Neurological: Normal speech, Normal strength at 5/5 x4 extr, Normal tone, Normal affect Laboratory Data at Discharge: WBC 9.60 K/uL (4.3-10.9) 10/05/20 01:10 Hgb 11.9 g/dL (12.0-15.0) L 10/05/20 01:10 Hct 34.7 % (36.0-45.0) L 10/05/20 01:10 Plt Count 152 K/uL (152-406) 10/05/20 01:10 PT 10.7 SECONDS (9.5-12.5) 10/05/20 01:10 INR 0.93 10/05/20 01:10 Sodium 141 mmol/L (136-145) 10/05/20 01:10 Potassium 4.1 mmol/L (3.5-5.1) 10/05/20 01:10 BUN 21 mg/dL (7-18) H 10/05/20 01:10 Creatinine 1.14 mg/dL (0.55-1.3) 10/05/20 01:10 Glucose 270 mg/dL (74-106) H 10/05/20 01:10 Magnesium 2.0 mg/dL (1.8-2.4) 10/05/20 01:10 Total Bilirubin 0.3 mg/dL (0.2-1.0) 10/05/20 01:10 AST 33 U/L (15-37) 10/05/20 01:10 ALT 45 U/L (12-78) 10/05/20 01:10 Alkaline Phosphatase 87 U/L (45-117) 10/05/20 01:10 Troponin I < 0.02 ng/mL (0.0-0.045) 10/05/20 11:07 Home Medications: Aspirin [Lo-Dose Aspirin EC] 81 mg PO DAILY #0 tablet.dr 09/07/11 Metoprolol Tartrate 50 mg PO BID #0 tablet 09/07/11 Nitroglycerin [Nitrostat] 0.4 mg SL PRN #0 tab.subl 09/07/11 Simvastatin [Zocor] 40 mg FT DAILY #0 tablet 09/07/11 Albuterol Inhaler [Ventolin Inhaler*] 2 puff IH Q6H PRN #1 hfa.aer.ad 12/26/18 Ascorbic Acid [Vitamin C] 500 mg PO TID #90 tablet 10/05/20 Cholecalciferol (Vitamin D3) [Vitamin D 1000 Iu Tab] 2,000 unit PO DAILY #60 tab 10/05/20 Furosemide [Lasix] 40 mg PO DAILY #30 tab 10/05/20 Melatonin 5 mg PO BEDTIME #30 tablet 10/05/20 Thiamine HCl 100 mg PO BID #60 tablet 10/05/20 Zinc Sulfate [Zinc Sulfate*] 220 mg PO DAILY #30 cap 10/05/20 predniSONE [Deltasone*] 10 mg PO SEECOM #21 tab 10/05/20 New Medications: predniSONE [Deltasone*] 10 mg PO SEECOM #21 tab Furosemide [Lasix] 40 mg PO DAILY #30 tab Melatonin 5 mg PO BEDTIME #30 tablet Thiamine HCl 100 mg PO BID #60 tablet Ascorbic Acid [Vitamin C] 500 mg PO TID #90 tablet Cholecalciferol (Vitamin D3) [Vitamin D 1000 Iu Tab] 2,000 unit PO DAILY #60 tab Zinc Sulfate [Zinc Sulfate*] 220 mg PO DAILY #30 cap Physician Discharge Instructions: Patient presented with chest pain, shortness of breath and edema to the lower extremity. Patient admitted for further evaluation and treatment. Patient seen and evaluated by Cardiology. No intervention was required. Patient had echocardiogram to evaluate further. Suspect underlying CHF. Patient given IV Lasix with improvement. At discharge patient will follow up with cardiology in 1 week to follow up this hospitalization. At discharge patient continue with a 1500 cc per day fluid restriction and low-salt diet. At discharge patient will continue with Lasix 40 mg daily. Recommend to monitor her weight daily. If her weight increases by more than 5 lb she is to contact her PCP or cardiology for further recommendation. Education on CHF will be provided. Patient was also found to be positive for COVID. Symptoms of shortness of breath likely related to above. At discharge the patient will continue with prednisone 10 mg 1 pill twice daily for 7 days then 1 pill once daily for 7 days. Patient will also continue with vitamin supplementation including vitamin-C 500 mg 3 times a day, vitamin-D 2000 units daily, thiamine 100 mg 1 pill twice daily, melatonin 5 mg at bedtime and zinc 2 and 20 mg daily. Patient may continue with Pro air 2 puffs 3 times a day as needed for shortness of breath. Patient will continue with oxygen to maintain sats above 93%. Oxygen can be weaned off. Recommend follow up with PCP to further monitor and address. Patient may also follow up with pulmonology as an outpatient to further assess. Education on COVID 19 will be provided. Patient will continue with incentive spirometer at home. Patient will continue with proning and ambulation as well. Patient with hypertension. At discharge she will continue with metoprolol 50 mg 1 pill twice daily. Recommend to maintain blood pressure less than 130/80. Further adjustment can be done by her PCP. Patient will also continue with aspirin 81 mg daily. Patient with hyperlipidemia. At discharge she will continue with Zocor 40 mg d aily. Diet: AHA Activity: Ad ishaan Followup: Diego Magana MD [Primary Care Provider] - Time spent managing pt's care (in minutes): 55
[2020-10-05] MEDS ORDERED: ASCORBIC ACID 500 MG TABLET PO SCH (14:00)
[2020-10-05] MEDS ORDERED: FUROSEMIDE 40 MG/4 ML VIAL IV SCH (17:00)
--- NOTE | 2020-10-05 17:08 | EKG ---
Test Date: 2020-10-05 Test Time: 00:59:37 Milieu Technician: MEASUREMENT RESULTS: Intervals: Rate: 84 TN: 170 QRSD: 96 QT: 392 QTc: 463 [place]: P: 69 TN: 170 QRS: 67 T: 54 INTERPRETIVE STATEMENTS: Normal sinus rhythm Cannot rule out Anterior infarct, age undetermined Abnormal ECG Compared to ECG 12/26/2018 02:01:23 No significant changes Electronically Signed On 10-05-20 17:06:10 [employer] by Tao Chaves
[2020-10-05 17:30] VITALS: BP 147/78; TEMP 97.7
[2020-10-05] MEDS ORDERED: THIAMINE HCL 100 MG TABLET PO SCH (21:00)
[2020-10-05] MEDS ORDERED: MELATONIN 5 MG TABLET PO SCH (21:00)
[2020-10-06] MEDS ORDERED: VITAMIN D 1000 UNIT TAB PO SCH (09:00)
== END 2020-10-05 19:20 | disposition home or self-care (01) ==
LOC: ER 00:43 → ERHOLD 06:29 → 4TH 09:46
PROVIDERS: ADMIT Internal Medicine; ATTEND Family Medicine
DX: I11.0 Hypertensive heart disease with heart failure (principal); I50.9 Heart failure, unspecified; U07.1 COVID-19; J12.82 Pneumonia due to coronavirus disease 2019; I25.10 Atherosclerotic heart disease of native coronary artery without angina pectoris; E11.9 Type 2 diabetes mellitus without complications; E78.5 Hyperlipidemia, unspecified; Z95.5 Presence of coronary angioplasty implant and graft; Z79.82 Long term (current) use of aspirin; Z87.891 Personal history of nicotine dependence
CPT/HCPCS: 96365; 96368; 93005; 87040 ×2; 85025; 80048; 36415; 83735; 85610; 82947 ×3; 85379; 80076; 83605; 81003; 84484 ×3; 84145; 83880; 71275; 71045; 96375; 99285; U0003; Q9967; J1940 ×2; J0456; J1650; J0696 ×2; J7050; G0378; J7512

== ENCOUNTER 2022-06-17 19:09 | Emergency (ER) | payer BC ==
[2022-06-17] MEDS ORDERED: D5 0.9 NS 1,000 ML IV ONE (19:50)
--- NOTE | 2022-06-17 20:14 | RAD REPORT ---
EXAM DESCRIPTION: RAD - Chest Single View - 06/17/2022 7:58 pm CLINICAL HISTORY: COUGH COMPARISON: Chest Single View dated 10/05/2020; Chest Single View dated 07/25/2020; Chest Single View dated 05/12/2020; Chest Single View dated 12/26/2018; CHEST SINGLE VIEW dated 11/12/2011 FINDINGS: Lines: None. Lungs: No evidence of edema or pneumonia. Pleural: No significant pleural effusions or pneumothorax. Cardiac: The heart size is within normal limits. Mediastinum: Within normal limits. Bones: No acute fractures. Other: None IMPRESSION: No acute cardiopulmonary disease.
[2022-06-17 20:54] LABS: Absolute Lymphocytes (CBC) 1.3 K/uL (0.7-4.9); Hematocrit 40.7 % (36.0-45.0); Lymphocytes % 25.8 % (15.3-44.8); MCV 89.7 fL (80-100); MPV 8.2 fL (7.6-11.3); RBC Red Blood Cell Count 4.54 M/uL (3.86-4.86)
[2022-06-17 20:56] LABS: Protime INR 1.05
--- NOTE | 2022-06-17 22:24 | ER ---
Nurse's Notes [facility] Name: Bailey Sears Age: 56 yrs Sex: Female : 1965 Arrival Date: 06/17/2022 Time: 19:14 Bed 8 Private MD: Diagnosis: Hypoglycemia, unspecified;Adverse effect of insulin and oral hypoglycemic [antidiabetic] drugs Presentation: 06/17 19:29 Chief complaint: EMS states: Found unreponie on scene, FSBS 45, provided 500 cc aa9 dextrose fluids, pt became alert and aware at that time FSBS 114. Coronavirus screen: Vaccine status: Patient reports receiving the 2nd dose of the covid vaccine. Ebola Screen: No symptoms or risks identified at this time. Initial Sepsis Screen: Does the patient meet any 2 criteria? No. Patient's initial sepsis screen is negative. Does the patient have a suspected source of infection? No. Patient's initial sepsis screen is negative. Risk Assessment: Do you want to hurt yourself or someone else? Patient reports no desire to harm self or others. Onset of symptoms was June 17, 2022. Care prior to arrival: IV initiated. 20 GA, in the left hand, Glucose check: 114. 19:29 Method Of Arrival: EMS: [facility] aa9 19:29 Acuity: NAZANIN 3 aa9 Triage Assessment: 19:35 General: Appears comfortable, obese, Behavior is calm, cooperative, appropriate for aa9 age. Pain: Denies pain. EENT: No deficits noted. Neuro: Level of Consciousness is awake, alert, obeys commands, Oriented to person, place, time, situation. Cardiovascular: Heart tones S1 S2 Patient's skin is warm and dry. Respiratory: Airway is patent Respiratory effort is even, unlabored. GI: Abdomen is obese. : No signs and/or symptoms were reported regarding the genitourinary system. Derm: Skin is intact, is healthy with good turgor. Musculoskeletal: No signs and/or symptoms reported regarding the musculoskeletal system. Historical: - Allergies: 19:33 hair dye; aa9 - PMHx: 19:33 Diabetes - NIDDM; Hypertension; Asthma; aa9 - PSHx: 19:33 Cardiac stent; section; aa9 - Immunization history:: Client reports receiving the 2nd dose of the Covid vaccine. - Social history:: Smoking status: Patient/guardian denies using tobacco, the patient reports quitting approximately 6 years ago. - Family history:: not pertinent. Screenin:37 Abuse screen: Denies threats or abuse. Denies injuries from another. Nutritional aa9 screening: No deficits noted. Tuberculosis screening: No symptoms or risk factors identified. Fall Risk None identified. Assessment: 19:36 General: Appears in no apparent distress. comfortable, obese, Behavior is calm, aa9 cooperative, appropriate for age, Reports I had a fever of 103 yesterday, I just felt really sick yesterday. I don't know what happen but I just started seing stars then I went to sleep, then I woke up on the ambulance. Pain: Denies pain. Neuro: Level of Consciousness is awake, alert, obeys commands, Oriented to person, place, time, situation, Polisher And Sander are equal bilaterally Speech is normal, Facial symmetry appears normal. Cardiovascular: Patient's skin is warm and dry. Rhythm is regular. Respiratory: Airway is patent Respiratory effort is even, unlabored. GI: Abdomen is obese. : No signs and/or symptoms were reported regarding the genitourinary system. EENT: No signs and/or symptoms were reported regarding the EENT system. Derm: Skin is intact, is healthy with good turgor. Musculoskeletal: No signs and/or symptoms reported regarding the musculoskeletal system. Vital Signs: 19:29 BP 148 / 83; Pulse 73; Resp 18 S; Temp 98.1(O); Pulse Ox 95% on R/A; Weight 122.47 kg aa9 (R); Height 5 ft. 1 in. (154.94 cm) (R); Pain 0/10; 19:30 BP 139 / 96; Pulse 76; Resp 17 S; Pulse Ox 98% on R/A; aa9 20:00 BP 104 / 67; Pulse 76; Resp 18; Pulse Ox 100% on R/A; Pain 0/10; aa9 19:29 Body Mass Index 51.02 (122.47 kg, 154.94 cm) aa9 ED Course: 19:14 Patient arrived in ED. ss 19:19 Tj Garcia MD is Attending Physician. doris 19:29 Mervat Akhtar, BEE is Primary Nurse. aa9 19:33 Triage completed. aa9 19:36 Arm band placed on. aa9 19:38 Patient has correct armband on for positive identification. Placed in gown. Bed in low aa9 position. Call light in reach. Side rails up X2. Warm blanket given. 20:00 XRAY Chest (1 view) In Process Unspecified. EDMS 20:33 Basic Metabolic Panel Sent. aa9 20:33 CBC with Diff Sent. aa9 20:33 LFT's Sent. aa9 20:33 Magnesium Sent. aa9 20:33 NT PRO-BNP Sent. aa9 20:33 PT-INR Sent. aa9 20:33 Lipase Sent. aa9 20:33 Troponin HS Sent. aa9 22:39 No provider procedures requiring assistance completed. IV discontinued, intact, aa9 bleeding controlled, No redness/swelling at site. Pressure dressing applied. Administered Medications: 20:33 Drug: D5-NS 1000 ml Route: IV; Rate: 125 ml/hr; Site: left hand; aa9 Medication: 22:40 VIS not applicable for this client. aa9 Outcome: 22:23 Discharge ordered by . doris 22:39 Discharged to home ambulatory, with family. aa9 22:39 Condition: stable 22:39 Discharge instructions given to patient, Instructed on discharge instructions, follow up and referral plans. Demonstrated understanding of instructions, follow-up care. 22:40 Patient left the ED. aa9 Signatures: Dispatcher [employer] Tj Chandler MD MD cha Smirch, Shelby, RN RN Mervat Ochoa, BEE RN aa9
--- NOTE | 2022-06-17 22:24 | EDPHYS ---
Physician Documentation [facility] Name: Bailey Sears Age: 56 yrs Sex: Female : 1965 Arrival Date: 06/17/2022 Time: 19:14 Bed 8 Private MD: ED Physician Tj Garcia HPI: 06/17 22:19 This 56 yrs old Female presents to ER via EMS with complaints of Low Blood doris Sugar. 22:19 The patient or guardian reports hypoglycemia, that was potentially precipitated by NOT doris EATING. Onset: The symptoms/episode began/occurred just prior to arrival. Associated signs and symptoms: Pertinent positives: None. Pertinent negatives: None. Current symptoms: In the emergency department the patient's symptoms have improved, markedly, is more alert. The patient has experienced similar episodes in the past, several times. Historical: - Allergies: 19:33 hair dye; aa9 - PMHx: 19:33 Diabetes - NIDDM; Hypertension; Asthma; aa9 - PSHx: 19:33 Cardiac stent; section; aa9 - Immunization history:: Client reports receiving the 2nd dose of the Covid vaccine. - Social history:: Smoking status: Patient/guardian denies using tobacco, the patient reports quitting approximately 6 years ago. - Family history:: not pertinent. ROS: 22:19 Constitutional: Negative for fever, chills, and weight loss, Eyes: Negative for injury, doris pain, redness, and discharge, ENT: Negative for injury, pain, and discharge, Neck: Negative for injury, pain, and swelling, Cardiovascular: Negative for chest pain, palpitations, and edema, Respiratory: Negative for shortness of breath, cough, wheezing, and pleuritic chest pain, Abdomen/GI: Negative for abdominal pain, nausea, vomiting, diarrhea, and constipation, Back: Negative for injury and pain, : Negative for injury, bleeding, discharge, and swelling, MS/Extremity: Negative for injury and deformity, Skin: Negative for injury, rash, and discoloration, Neuro: Negative for headache, weakness, numbness, tingling, and seizure, Psych: Negative for depression, anxiety, suicide ideation, homicidal ideation, and hallucinations, Allergy/Immunology: Negative for hives, rash, and allergies, Hematologic/Lymphatic: Negative for swollen nodes, abnormal bleeding, and unusual bruising. 22:19 Endocrine: Positive for WEAK, GLUCOSE 40'S. Exam: 22:19 Constitutional: This is a well developed, well nourished patient who is awake, alert, doris and in no acute distress. Head/Face: Normocephalic, atraumatic. Eyes: Pupils equal round and reactive to light, extra-ocular motions intact. Lids and lashes normal. Conjunctiva and sclera are non-icteric and not injected. Cornea within normal limits. Periorbital areas with no swelling, redness, or edema. ENT: Nares patent. No nasal discharge, no septal abnormalities noted. Tympanic membranes are normal and external auditory canals are clear. Oropharynx with no redness, swelling, or masses, exudates, or evidence of obstruction, uvula midline. Mucous membranes moist. Neck: Trachea midline, no thyromegaly or masses palpated, and no cervical lymphadenopathy. Supple, full range of motion without nuchal rigidity, or vertebral point tenderness. No Meningismus. Chest/axilla: Normal chest wall appearance and motion. Nontender with no deformity. No lesions are appreciated. Cardiovascular: Regular rate and rhythm with a normal S1 and S2. No gallops, murmurs, or rubs. Normal PMI, no JVD. No pulse deficits. Respiratory: Lungs have equal breath sounds bilaterally, clear to auscultation and percussion. No rales, rhonchi or wheezes noted. No increased work of breathing, no retractions or nasal flaring. Abdomen/GI: Soft, non-tender, with normal bowel sounds. No distension or tympany. No guarding or rebound. No evidence of tenderness throughout. Back: No spinal tenderness. No costovertebral tenderness. Full range of motion. Female : Normal external genitalia. Skin: Warm, dry with normal turgor. Normal color with no rashes, no lesions, and no evidence of cellulitis. MS/ Extremity: Pulses equal, no cyanosis. Neurovascular intact. Full, normal range of motion. Neuro: Awake and alert, GCS 15, oriented to person, place, time, and situation. Cranial nerves II-XII grossly intact. Motor strength 5/5 in all extremities. Sensory grossly intact. Cerebellar exam normal. Normal gait. Psych: Awake, alert, with orientation to person, place and time. Behavior, mood, and affect are within normal limits. 22:19 ECG was reviewed by the Attending Physician. Vital Signs: 19:29 BP 148 / 83; Pulse 73; Resp 18 S; Temp 98.1(O); Pulse Ox 95% on R/A; Weight 122.47 kg aa9 (R); Height 5 ft. 1 in. (154.94 cm) (R); Pain 0/10; 19:30 BP 139 / 96; Pulse 76; Resp 17 S; Pulse Ox 98% on R/A; aa9 20:00 BP 104 / 67; Pulse 76; Resp 18; Pulse Ox 100% on R/A; Pain 0/10; aa9 19:29 Body Mass Index 51.02 (122.47 kg, 154.94 cm) aa9 MDM: 19:19 Patient medically screened. [facility] 22:21 Differential diagnosis: hypoglycemic episode. Data reviewed: vital signs, nurses notes, [facility] lab test result(s), EKG, radiologic studies, plain films. 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 Test interpretation: by ED physician or midlevel provider: ECG, plain radiologic studies. Counseling: I had a detailed discussion with the patient and/or guardian regarding: the historical points, exam findings, and any diagnostic results supporting the discharge/admit diagnosis, lab results, radiology results, the need for outpatient follow up, for definitive care, a family practitioner. 06/17 19:31 Order name: Basic Metabolic Panel [facility] 06/17 19:31 Order name: CBC with Diff; Complete Time: 21:24 [facility] 06/17 19:31 Order name: LFT's 06/17 19:31 Order name: Magnesium [facility] 06/17 19:31 Order name: NT PRO-BNP [facility] 06/17 19:31 Order name: PT-INR; Complete Time: 21:24 [facility] 06/17 19:31 Order name: Troponin HS [facility] 06/17 19:31 Order name: XRAY Chest (1 view); Complete Time: 21:24 [facility] 06/17 19:31 Order name: EKG; Complete Time: 19:31 [facility] 06/17 19:31 Order name: Cardiac monitoring; Complete Time: 20:14 [facility] 06/17 19:31 Order name: Lipase [facility] 06/17 19:31 Order name: Diet Regular; Complete Time: 19:31 [facility] 06/17 20:42 Order name: Glucose, Ancillary Testing; Complete Time: 21:24 [facility] 06/17 19:31 Order name: EKG - Nurse/Tech; Complete Time: 20:14 [facility] 06/17 19:31 Order name: IV Saline Lock; Complete Time: 20:14 [facility] 06/17 19:31 Order name: Labs collected and sent; Complete Time: 20:33 [facility] 06/17 19:31 Order name: O2 Per Protocol; Complete Time: 20:14 [facility] 06/17 19:31 Order name: O2 Sat Monitoring; Complete Time: 20:14 [facility] EC:19 Rate is 69 beats/min. Rhythm is regular. QRS [place] is Normal. MT interval is normal. QRS doris interval is normal. QT interval is normal. No Q waves. T waves are Normal. No ST changes noted. Clinical impression: Normal ECG and No evidence of ischemia. Interpreted by me. Reviewed by me. Administered Medications: 20:33 Drug: D5-NS 1000 ml Route: IV; Rate: 125 ml/hr; Site: left hand; aa9 Disposition Summary: 06/17/22 22:23 Discharge Ordered Location: Home doris Problem: new doris Symptoms: have improved doris Condition: Stable doris Diagnosis - Hypoglycemia, unspecified doris - Adverse effect of insulin and oral hypoglycemic [antidiabetic] drugs doris Followup: doris - With: Private Physician - When: 2 - 3 days - Reason: Recheck today's complaints, Continuance of care, Re-evaluation by your physician Discharge Instructions: - Discharge Summary Sheet doris - Hypoglycemia doris - Blood Glucose Monitoring, Adult doris - Hypoglycemia, [id number] doris - Preventing Hypoglycemia doris Forms: - Medication Reconciliation Form doris - Thank You Letter doris - Antibiotic Education doris - Prescription Opioid Use doris Signatures: Dispatcher [employer] Tj Chandler MD MD cha Avalos, Aylin, RN RN aa9
[2022-06-17 22:52] VITALS: TEMP 98.1
[2022-06-17 22:55] VITALS: BP 104/67; O2SAT 100
[2022-06-17 23:30] LABS: Potassium 3.6 mmol/L (3.5-5.1)
[2022-06-17 23:31] LABS: Albumin 3.7 g/dL (3.4-5.0); Bilirubin Direct 0.1 mg/dL (0-0.2); Bilirubin Total 0.4 mg/dL (0.2-1.0); Magnesium 2.7 mg/dL (1.8-2.4); Protein, Total 8.4 g/dL (6.4-8.2); Troponin High Sensitivity 8.2 pg/mL (<58.9)
--- NOTE | 2022-06-20 15:13 | EKG ---
Test Date: 2022-06-17 Test Time: 20:06:55 Wage Adjuster: KINSEY MEASUREMENT RESULTS: Intervals: Rate: 69 WA: 176 QRSD: 90 QT: 420 QTc: 450 [place]: P: 50 WA: 176 QRS: 33 T: 49 INTERPRETIVE STATEMENTS: Normal sinus rhythm Low voltage QRS Borderline ECG Compared to ECG 10/05/2020 00:59:37 Low QRS voltage now present Myocardial infarct finding no longer present Electronically Signed On 06-20-22 15:09:59 [employer] by Markos Morales
== END 2022-06-17 22:40 | disposition home or self-care (01) ==
LOC: ER 19:09
DX: E11.649 Type 2 diabetes mellitus with hypoglycemia without coma (principal); T38.3X5A Adverse effect of insulin and oral hypoglycemic [antidiabetic] drugs, initial encounter; I10 Essential (primary) hypertension; Z91.048 Other nonmedicinal substance allergy status; Z95.818 Presence of other cardiac implants and grafts
CPT/HCPCS: 93005; 85025; 80048; 36415; 83735; 85610; 82947; 80076; 84484; 83690; 83880; 71045; 96374; 99284; J7042

== ENCOUNTER 2025-03-16 16:01 | Emergency (ER) | payer BC ==
[2025-03-16 17:06] LABS: Absolute Lymphocytes (CBC) 1.0 K/uL (0.7-4.9); Hematocrit 41.8 % (36.0-45.0); Hemoglobin 14.3 g/dL (12.0-15.0); MCH 30.9 pg (27.0-35.0); MCHC 34.2 g/dL (32.0-36.0); MCV 90.4 fL (80-100); MPV 7.8 fL (7.6-11.3); Nucleated RBC Absolute Count 0.0 (0-0); Nucleated Red Blood Cells % 0.0 % (0-0); RBC Red Blood Cell Count 4.63 M/uL (3.86-4.86); White Blood Count 11.40 thou/uL (4.3-10.9)
[2025-03-16 17:23] LABS: ALT/SGPT 30.0 U/L (13-56); AST/SGOT 15.0 U/L (15-37); Albumin 4.1 g/dL (3.4-5.0); Albumin/Globulin Ratio 0.9 (1.1-1.8); Alkaline Phosphatase 116.0 U/L (45-117); Anion Gap 9.1 mEq/L (5.0-15.0); BUN Blood Urea Nitrogen 39.0 mg/dL (7-18); Globulin 4.6 g/dL (2.3-3.5); Glucose Level 183.0 mg/dL (74-106); Lipase 54.0 U/L (13-75); Potassium 4.1 mEq/L (3.5-5.1)
[2025-03-16] MEDS ORDERED: DICYCLOMINE HCL 10 MG CAP ONE (17:36)
[2025-03-16] MEDS ORDERED: NA CHLORIDE 0.9% 1,000 ML ONE ×2 (17:36→19:51)
[2025-03-16] MEDS ORDERED: ONDANSETRON 4 MG/2 ML VIAL ONE (17:36)
[2025-03-16] MEDS ORDERED: FAMOTIDINE 20 MG/2 ML VIAL IV ONE (17:36)
--- NOTE | 2025-03-16 18:51 | RAD REPORT ---
EXAMINATION: Abdomen Pelvis Wo Contrast CLINICAL INDICATION: Female, 59 years old.ABD PAIN TECHNIQUE: CT abdomen and pelvis was performed, without IV contrast, as per department protocol. Axia l, sagittal and coronal reconstructions were obtained. One or more of the following dose reduction techniques were used: Automated exposure control, adjustment of the mA and/or kV according to the pat ient size, and/or iterative reconstruction. Unless otherwise specified, incidental findings do not require dedicated imaging follow-up. [id number]. IV CONTRAST: Not administered. COMPARISON: 02/05/2025 FINDINGS: The lack of intravenous contrast limits the sensitivity of this exam for evaluation of solid visceral organs, vascular structures, and retroperitoneum. LOWER CHEST: No acute process identified.No significant pericardial effusion. Moderate coronary arter y calcifications.Mild circumferential thickening of the distal esophagus which could reflect esophagitis. UPPER GI: Possible lesion within the wall or adjacent to the wall of the distal esophagus measuring 2 .3 cm. LIVER: No significant focal abnormality. GALLBLADDER/BILE DUCTS: Cholelithiasis without CT evidence of acute cholecystitis.? PANCREAS: No mass, ductal dilation, or edgar-pancreatic fluid. SPLEEN: Unremarkable. ADRENALS: No adrenal masses. KIDNEYS AND URETERS: No hydronephrosis.Limited evaluation for renal lesions in the absence of IV cont rast. ABDOMINAL AORTA AND OTHER VESSELS: Normal caliber aorta and IVC. PERITONEUM: No abnormal free fluid. No free air. LYMPH NODES: No pathologic lymphadenopathy. ABDOMINAL WALL: Small fat containing umbilical hernia. SMALL BOWEL/COLON: Fluid present within the small bowel and colon.Appendix within normal limits. No b owel obstruction. URINARY BLADDER: Underdistended but grossly unremarkable. REPRODUCTIVE ORGANS: Fat-containing right adnexal lesion consistent with a dermoid. This measures 2.8 cm. MUSCULOSKELETAL: No acute or suspicious osseous abnormality. ADDITIONAL FINDINGS: None. IMPRESSION: No acute findings within the abdomen or pelvis. Cholelithiasis without CT evidence of acute cholecyst itis. Appendix within normal limits. Possible lesion within the wall of the distal esophagus. This was present in retrospect on 02/05/2025. Consider nonemergent CT with and without contrast for further evaluation. Small right ovarian ovarian dermoid.
[2025-03-16 21:42] LABS: Anion Gap 7.8 mEq/L (5.0-15.0); BUN Blood Urea Nitrogen 36.0 mg/dL (7-18); Glucose Level 117.0 mg/dL (74-106); Potassium 3.8 mEq/L (3.5-5.1)
--- NOTE | 2025-03-16 22:22 | EDPHYS ---
Physician Documentation [facility] Name: Bailey Sears Age: 59 yrs Sex: Female : 1965 Arrival Date: 03/16/2025 Time: 16:01 Bed 20 Private MD: ED Physician Laxmi Orellana HPI: 03/16 16:13 This 59 yrs old Female presents to ER via Ambulatory with complaints of kb Nausea/Vomiting/Diarrhea, Weakness, Dehydrated, Abdominal Pain. 16:13 Patient is a 59-year-old female who presents for diarrhea that started around midnight kb last night followed by nausea, vomiting and abdominal cramping. States she works until 11 PM, diarrhea started at midnight while eating a taco salad. Denies fever. States she has been having some muscle so believes she is dehydrated.. Historical: - Allergies: 16:10 hair dye; jb4 - PMHx: 16:10 Asthma; Diabetes - NIDDM; Hypertension; jb4 - PSHx: 16:10 cardiac stent; section; jb4 - Immunization history:: Adult Immunizations up to date. - Infectious Disease History:: Denies. - Social history:: Smoking status: Patient/guardian denies using tobacco, the patient reports quitting approximately 17 years ago. ROS: 16:14 Constitutional: As per HPI kb Exam: 16:14 Constitutional: This is a well developed, well nourished patient who is awake, alert, kb and in no acute distress. Head/Face: Normocephalic, atraumatic. ENT: Moist Mucous membranes Cardiovascular: Regular rate Respiratory: Respirations even and unlabored. No increased work of breathing. Talking in full sentences Abdomen/GI: Soft, non-tender. No distention Skin: Warm, dry with normal turgor. Normal color. MS/ Extremity: Pulses equal, no cyanosis. Neurovascular intact. Full, normal range of motion. Neuro: Awake and alert, GCS 15, oriented to person, place, time, and situation. Vital Signs: 16:08 BP 144 / 93; Pulse 88; Resp 16; Temp 98.3(O); Pulse Ox 97% on R/A; Weight 80.74 kg (R); jb4 Height 5 ft. 1 in. (R); Pain 5/10; 18:03 BP 122 / 68; Pulse 76; Resp 18; Pulse Ox 100% on R/A; kj2 19:10 BP 121 / 70; Pulse 72; Resp 20; Pulse Ox 100% ; kj2 20:00 BP 138 / 76; Pulse 73; Resp 18; Pulse Ox 98% ; ss12 21:00 BP 143 / 80; Pulse 72; Resp 16; Pulse Ox 98% on R/A; ss12 22:30 BP 127 / 71; Pulse 73; Resp 18; Pulse Ox 98% ; ss12 16:08 Body Mass Index 33.63 (80.74 kg, 154.94 cm) jb4 16:08 Pain Scale: Adult jb4 MDM: 16:06 Medical Screening Exam initiated kb 16:15 Data reviewed: vital signs, nurses notes. ED course: Patient is a 59-year-old female kb who presents for nausea, vomiting, diarrhea that started last night. No abdominal tenderness or pain. Will obtain CBC, CMP, lipase. Will administer Bentyl for abdominal cramping, Zofran for nausea, IV fluids for hydration and Pepcid.. 19:34 Consideration of Admission/Observation Escalation of care including kb admission/observation considered. admission considered for acute kidney injury. Pt prefers not to be admitted. Will give second liter of NS and repeat BMP. . 22:20 Differential diagnosis: Nonspecific abd pain, viral gastroenteritis, acute kidney kb injury, dehydration, abnormal electrolytes. Counseling: I had a detailed discussion with the patient and/or guardian regarding the historical points, exam findings, and any diagnostic results supporting the discharge/admit diagnosis, lab results, radiology results, the need for outpatient follow up, a family practitioner, to return to the emergency department if symptoms worsen or persist or if there are any questions or concerns that arise at home. ED course: creatinine improved after 2L NS. Will discharge pt to follow up with PCP. 03/16 16:13 Order name: CBC with Diff; Complete Time: 17:09 kb 03/16 16:13 Order name: CMP; Complete Time: 17:32 kb 03/16 16:13 Order name: Lipase; Complete Time: 17:32 kb 03/16 20:29 Order name: BMP: draw after 2nd liter of NS completes; Complete Time: 21:52 kb 03/16 17:55 Order name: CT Abd/Pelvis - Without Contrast; Complete Time: 18:52 kb 03/16 16:13 Order name: IV Saline Lock; Complete Time: 17:00 kb 03/16 16:13 Order name: Labs collected and sent; Complete Time: 17:00 kb Administered Medications: 17:46 Drug: Dicyclomine PO 20 mg PO once Route: PO; kj2 21:05 Follow up: Response: No adverse reaction ss12 17:47 Drug: Famotidine IVP 20 mg IVP once; dilute with 10 mL 0.9% NaCl; give over 2 minutes kj2 Route: IVP; Site: left antecubital; 19:11 Follow up: Response: No adverse reaction kj2 17:47 Drug: Ondansetron IVP 4 mg IVP once; over 2 minutes Route: IVP; Site: left antecubital; kj2 19:11 Follow up: Response: No adverse reaction kj2 17:47 Drug: NS 0.9% IV 1000 ml IV at 1 bolus Per protocol; to be given as a bolus over 60 kj2 minutes Route: IV; Rate: 1 bolus; Site: left antecubital; 19:11 Follow up: IV Status: Completed infusion; IV Intake: 1000ml kj2 19:58 Drug: NS 0.9% IV 1000 ml IV at 1000 ml once; to be given as a bolus over 60 minutes vc1 Route: IV; Rate: 1000 ml; Site: left antecubital; 21:05 Follow up: IV Status: Completed infusion; IV Intake: 1000ml ss12 Disposition Summary: 03/16/25 22:22 Discharge Ordered Notes: Location: Home kb Condition: Stable kb Diagnosis - Dehydration kb - Diarrhea, unspecified kb Followup: kb - With: Emergency Department - When: As needed - Reason: Worsening of condition Followup: kb - With: Private Physician - When: 2 - 3 days - Reason: Recheck today's complaints, Continuance of care, Re-evaluation by your physician Discharge Instructions: - Discharge Summary Sheet kb - Diarrhea, Adult, [id number] kb - Acute Kidney Injury, Adult kb Forms: - Medication Reconciliation Form kb - Antibiotic Education kb - Prescription Opioid Use kb - Patient Portal Instructions kb - Leadership Thank You Letter kb - Work release form rk3 Prescriptions: - ondansetron 4 mg Oral Tablet,disintegrating - take 1 tablet ORAL route every 6 hours as needed for nausea and vomiting; 12 kb tablet; Refills: 0, Product Selection Permitted - dicyclomine 20 mg Oral tablet - take 1 tablet ORAL route 4 times per day As needed; 20 tablet; Refills: 0, kb Product Selection Permitted Signatures: Dispatcher [employer] Jennifer Medina FNP-C FNP-Ckb Bryson, James, RN RN jb4 Maura Kelly RN RN vc1 Michelle Myers RN RN kj2 Tony Jimenez RN ss12 Corrections: (The following items were deleted from the chart) 16:14 16:14 CBC+H.LAB.BRZ ordered. EDMS EDMS 16:14 16:14 COMPREHENSIVE METABOLIC PANEL+C.LAB.BRZ ordered. EDMS EDMS 16:14 16:14 LIPASE+C.LAB.BRZ ordered. EDMS EDMS
--- NOTE | 2025-03-16 22:22 | ER ---
Nurse's Notes [facility] Name: Bailey Sears Age: 59 yrs Sex: Female : 1965 Arrival Date: 03/16/2025 Time: 16:01 Bed 20 Private MD: Diagnosis: Dehydration;Diarrhea, unspecified Presentation: 03/16 16:08 Chief complaint: Patient states: I am having diarrhea that started last night around 12 jb4 am. I am also vomiting and having upper abdominal pain. Coronavirus screen: At this time, the client does not indicate any symptoms associated with coronavirus-19. Ebola Screen: No symptoms or risks identified at this time. Initial Sepsis Screen: Does the patient meet any 2 criteria? No. Patient's initial sepsis screen is negative. Does the patient have a suspected source of infection? No. Patient's initial sepsis screen is negative. Risk Assessment: Do you want to hurt yourself or someone else? Patient reports no desire to harm self or others. Onset of symptoms was March 16, 2025. Transition of care: patient was not received from another setting of care. 16:08 Method Of Arrival: Ambulatory jb4 16:08 Acuity: NAZANIN 3 jb4 Triage Assessment: 16:10 General: Appears in no apparent distress. uncomfortable, Behavior is calm, cooperative, jb4 appropriate for age. Pain: Complains of pain in abdomen Pain does not radiate. Pain currently is 5 out of 10 on a pain scale. Quality of pain is described as crampy. Neuro: Level of Consciousness is awake, alert, obeys commands, Oriented to person, place, time, situation. Cardiovascular: Patient's skin is warm and dry. Respiratory: Airway is patent Respiratory effort is even, unlabored, Respiratory pattern is regular, symmetrical. GI: Reports upper abdominal pain, cramping, diarrhea, nausea, vomiting. Derm: Skin is intact, Skin is pink, warm \T\ dry. Musculoskeletal: Circulation, motion, and sensation intact. Range of motion: intact in all extremities. Historical: - Allergies: 16:10 hair dye; jb4 - PMHx: 16:10 Asthma; Diabetes - NIDDM; Hypertension; jb4 - PSHx: 16:10 cardiac stent; section; jb4 - Immunization history:: Adult Immunizations up to date. - Infectious Disease History:: Denies. - Social history:: Smoking status: Patient/guardian denies using tobacco, the patient reports quitting approximately 17 years ago. Screenin:54 [facility] ED Fall Risk Assessment (Adult) History of falling in the last 3 months, kj2 including since admission No falls in past 3 months (0 pts) Confusion or Disorientation No (0 pts) Intoxicated or Sedated No (0 pts) Impaired Gait No (0 pts) Mobility Assist Device Used No (0 pt) Altered Elimination No (0 pt) Score/Fall Risk Level 0 - 2 = Low Risk Maintained a safe environment, Hourly rounding (assess needs \T\ fall precautionary measures) done. Abuse screen: Denies threats or abuse. Denies injuries from another. Nutritional screening: No deficits noted. Tuberculosis screening: No symptoms or risk factors identified. Assessment: 17:49 General: Appears in no apparent distress. Behavior is cooperative. Pain: Complains of kj2 pain in abdomen Pain currently is 7 out of 10 on a pain scale. Neuro: Level of Consciousness is awake, alert, Oriented to person, place, time, situation. Cardiovascular: Patient's skin is warm and dry. Respiratory: Airway is patent Respiratory effort is unlabored. GI: Reports lower abdominal pain, upper abdominal pain, nausea, vomiting. GI: Reports lower abdominal pain, upper abdominal pain, nausea, vomiting. : Reports inability to void. 18:50 Reassessment: Patient appears in no apparent distress at this time. Patient and/or kj2 family updated on plan of care and expected duration. Pain level reassessed. Patient is alert, oriented x 3, equal unlabored respirations, skin warm/dry/pink. 20:27 Reassessment: Patient appears in no apparent distress at this time. Patient and/or ss12 family updated on plan of care and expected duration. Pain level reassessed. Patient is alert, oriented x 3, equal unlabored respirations, skin warm/dry/pink. 21:08 Reassessment: Patient appears in no apparent distress at this time. Patient and/or ss12 family updated on plan of care and expected duration. Pain level reassessed. Patient is alert, oriented x 3, equal unlabored respirations, skin warm/dry/pink. 22:40 Reassessment: Patient appears in no apparent distress at this time. Patient and/or ss12 family updated on plan of care and expected duration. Pain level reassessed. Patient is alert, oriented x 3, equal unlabored respirations, skin warm/dry/pink. Vital Signs: 16:08 BP 144 / 93; Pulse 88; Resp 16; Temp 98.3(O); Pulse Ox 97% on R/A; Weight 80.74 kg (R); jb4 Height 5 ft. 1 in. (R); Pain 5/10; 18:03 BP 122 / 68; Pulse 76; Resp 18; Pulse Ox 100% on R/A; kj2 19:10 BP 121 / 70; Pulse 72; Resp 20; Pulse Ox 100% ; kj2 20:00 BP 138 / 76; Pulse 73; Resp 18; Pulse Ox 98% ; ss12 21:00 BP 143 / 80; Pulse 72; Resp 16; Pulse Ox 98% on R/A; ss12 22:30 BP 127 / 71; Pulse 73; Resp 18; Pulse Ox 98% ; ss12 16:08 Body Mass Index 33.63 (80.74 kg, 154.94 cm) jb4 16:08 Pain Scale: Adult jb4 ED Course: 16:04 Patient arrived in ED. cj3 16:06 [facility] kb 16:06 Laxmi Orellana MD is Attending Physician. kb 16:10 Triage completed. jb4 16:10 Arm band placed on right wrist. jb4 17:00 Inserted saline lock: 20 gauge in left antecubital area, using aseptic technique. Blood kj2 collected. Flushed with 10 mL NS. 17:46 Michelle Myers, RN is Primary Nurse. kj2 17:55 Patient has correct armband on for positive identification. Call light in reach. kj2 Provided Education on: fall prevention. 17:55 No provider procedures requiring assistance completed. kj2 18:14 CT Abd/Pelvis - Without Contrast In Process Unspecified. EDMS 21:05 BMP: draw after 2nd liter of NS completes Sent. ss12 22:38 IV discontinued, intact, bleeding controlled, No redness/swelling at site. Pressure ss12 dressing applied. Administered Medications: 17:46 Drug: Dicyclomine PO 20 mg PO once Route: PO; kj2 21:05 Follow up: Response: No adverse reaction ss12 17:47 Drug: Famotidine IVP 20 mg IVP once; dilute with 10 mL 0.9% NaCl; give over 2 minutes kj2 Route: IVP; Site: left antecubital; 19:11 Follow up: Response: No adverse reaction kj2 17:47 Drug: Ondansetron IVP 4 mg IVP once; over 2 minutes Route: IVP; Site: left antecubital; kj2 19:11 Follow up: Response: No adverse reaction kj2 17:47 Drug: NS 0.9% IV 1000 ml IV at 1 bolus Per protocol; to be given as a bolus over 60 kj2 minutes Route: IV; Rate: 1 bolus; Site: left antecubital; 19:11 Follow up: IV Status: Completed infusion; IV Intake: 1000ml kj2 19:58 Drug: NS 0.9% IV 1000 ml IV at 1000 ml once; to be given as a bolus over 60 minutes vc1 Route: IV; Rate: 1000 ml; Site: left antecubital; 21:05 Follow up: IV Status: Completed infusion; IV Intake: 1000ml ss12 Medication: 17:56 VIS not applicable for this client. kj2 Intake: 19:11 IV: 1000ml; Total: 1000ml. kj2 21:05 IV: 1000ml; Total: 2000ml. ss12 Outcome: 22:22 Discharge ordered by . sallie 22:38 Discharged to home ss12 22:38 Discharged to home ambulatory, 22:38 Condition: good 22:38 Condition: stable 22:38 Discharge instructions given to patient, family, Instructed on discharge instructions, follow up and referral plans. Demonstrated understanding of instructions, follow-up care, Prescriptions given X 2, 22:45 Patient left the ED. ss12 Signatures: Dispatcher [employer] EDIL Jennifer Schilling, DEB PIERRE-Nicolas Curran RN RN jb4 Maura Kelly RN RN vc1 Michelle Myers RN RN kj2 Izabel Martinez cj3 Tony Jimenez RN RN ss12
[2025-03-18 08:03] VITALS: BP 127/71; TEMP 98.3; O2SAT 98
== END 2025-03-16 22:45 | disposition home or self-care (01) ==
LOC: ER 16:01
DX: E86.0 Dehydration (principal); R11.2 Nausea with vomiting, unspecified; Z95.818 Presence of other cardiac implants and grafts
CPT/HCPCS: 96361; 85025; 80048; 36415; 83690; 80053; 74176; 96375; 96374; 99284; J2405; J7030 ×2